=== PATIENT | female | born 1950 | race Caucasian/White ===

== ENCOUNTER 2018-02-12 00:11 | Inpatient (IN) | payer MEDICARE, MEDICAID ==
--- NOTE | 2018-02-12 00:24 | ED Physician Chart ---
ED Chief Complaint/HPI - Patient Information Date Seen:: 02/12/18 Time Seen:: 00:23 Chief Complaint:: Hypoxia History of Present Illness:: 67 yo female was brought from [facility] to ER for evaluation of SOB and low O2 sat 80% -90%. Patient had bilateral periorbital ecchymosis and a forehead lump. Patient stated that she fell about a week ago but could not give details about the evaluation and treatment she received. ED Review of Systems - Review of Systems General/Constitutional: No fever Skin: Skin lesions Head: Headache Eyes: No pain ENT: No nasal drainage Neck: No neck pain Cardio Vascular: No chest pain Pulmonary: SOB, Cough GI: No nausea, No vomiting Musculoskeletal: Bone or joint pain Neurological: No focal symptoms ED Past Medical History - Past Medical History Past Medical History: HTN, CHF, Dyslipidemia, Other (glaucoma, abnormal gait, weakness) Social History: Non Smoker, No Alcohol, No Drug Use Family Medical History - Family Member Mother History Unknown: Yes ED Physical Exam - Physical Examination Other Gen/Cons comments:: drowsy Other Head comments:: Frontal hematoma Other Eyes comments:: Bilateral periorbital ecchymosis ENMT: Nasal exam nl Neck: No nuchal rigidity Other Respiratory comments:: diminished lung sound Cardio Vascular: RRR, No murmur, gallop, rubs, NL S1 S2 Other GI comments:: BS normal, abdomen distended Other comments:: wearing diaper Extremities: normal strength in all extremities Neuro/Psych: No focal deficits ED Labs/Radiology/EKG Results - Lab Results Results: Laboratory Last Values WBC 5.9 Th/cmm (4.8-10.8) 02/12/18 00:20 RBC 5.13 Mil/cmm (3.80-5.20) 02/12/18 00:20 Hgb 13.5 gm/dL (12-16) 02/12/18 00:20 Hct 43.2 % (41.0-60) 02/12/18 00:20 MCV 84.3 fl (81-100) 02/12/18 00:20 MCH 26.3 pg (27.0-31.0) L 02/12/18 00:20 MCHC Differential 31.2 pg (28.0-36.0) 02/12/18 00:20 RDW 20.9 % (11.5-20.0) H 02/12/18 00:20 Plt Count 177 Th/cmm (150-400) 02/12/18 00:20 MPV 9.0 fl 02/12/18 00:20 Neutrophils % 71.1 % (40.0-80.0) 02/12/18 00:20 Lymphocytes % 16.2 % (20.0-50.0) L 02/12/18:20 Monocytes % 8.8 % (2.0-10.0) 02/12/18:20 Eosinophils % 1.2 % (0.0-5.0) 02/12/18 00:20 Basophils % 2.7 % (0.0-2.0) H 02/12/18 00:20 D-Dimer 1650 ng/mL (100-400) H 02/12/18 00:20 Specimen Source arterial 02/12/18 00:26 Sample Site right radial 02/12/18 00:26 pH 7.47 (7.35-7.45) H 02/12/18 00:26 pCO2 58.0 mmHg (35.0-45.0) H* 02/12/18 00:26 pO2 81.0 mmHg (80.0-100.0) 02/12/18 00:26 HCO3 37.3 mEq/L (20.0-26.0) H 02/12/18 00:26 Base Excess 15.9 mEq/L (-3.0-3.0) H 02/12/18 00:26 O2 Saturation 97.0 % (92.0-100.0) 02/12/18 00: Nirav Test yes 02/12/18 00: Vent Rate n/a 02/12/18 00:26 Inspired O2 28 02/12/18 00:26 Tidal Volume n/a 02/12/18 00:26 PEEP n/a 02/12/18 00:26 Pressure (ins/psv/peep) n/a 02/12/18 00:26 Critical Value abroedel 02/12/18 00:26 Sodium 136 mEq/L (136-145) 02/12/18 00:20 Potassium 4.4 mEq/L (3.5-5.1) 02/12/18 00:20 Chloride 92 mEq/L (98-107) L 02/12/18 00:20 Carbon Dioxide 34.7 mEq/L (21.0-31.0) H 02/12/18 00:20 Anion Gap 13.7 (7.0-16.0) 02/12/18 00:20 BUN 38 mg/dL (7-25) H 02/12/18 00:20 Creatinine 1.4 mg/dL (0.6-1.2) H 02/12/18 00:20 Est GFR ( Amer) 47.9 ml/min (>90) 02/12/18 00:20 Est GFR (Non-Af Amer) 39.6 ml/min 02/12/18 00:20 BUN/Creatinine Ratio 27.1 02/12/18 00:20 Glucose 136 mg/dL (70-105) H 02/12/18 00:20 Calcium 9.1 mg/dL (8.6-10.3) 02/12/18 00:20 Total Bilirubin 2.2 mg/dL (0.3-1.0) H 02/12/18 00:20 AST 22 U/L (13-39) 02/12/18 00:20 ALT 12 U/L (7-52) 02/12/18 00:20 Alkaline Phosphatase 210 U/L (34-104) H 02/12/18 00:20 Creatine Kinase 21 U/L (30-223) L 02/12/18 05:15 Troponin I 0.02 ng/mL (0.01-0.05) 02/12/18 05:15 B-Natriuretic Peptide > 5000.0 pg/mL (5.0-100.0) H 02/12/18 00:20 Total Protein 6.8 gm/dL (6.0-8.3) 02/12/18 00:20 Albumin 3.0 gm/dL (3.7-5.3) L 02/12/18 00:20 Globulin 3.8 gm/dL 02/12/18 00:20 Albumin/Globulin Ratio 0.8 (1.0-1.8) L 02/12/18 00:20 Urine Source CATH 02/12/18 02:10 Urine Color YELLOW 02/12/18 02:10 Urine Clarity HAZY (CLEAR) 02/12/18 02:10 Urine pH 5.5 (4.6 - 8.0) 02/12/18 02:10 Ur Specific [place] 1.025 (1.005-1.030) 02/12/18 02:10 Urine Protein 100 mg/dL (NEGATIVE) H 02/12/18 02:10 Urine Glucose (UA) NEGATIVE mg/dL (NEGATIVE) 02/12/18 02:10 Urine Ketones TRACE mg/dL (NEGATIVE) 02/12/18 02:10 Urine Blood SMALL (NEGATIVE) H 02/12/18 02:10 Urine Nitrate NEGATIVE (NEGATIVE) 02/12/18 02:10 Urine Bilirubin MODERATE (NEGATIVE) H 02/12/18 02:10 Urine Ictotest POSITIVE (NEGATIVE) 02/12/18 02:10 Urine Urobilinogen >=8.0 E.U./dL (0.2 - 1.0) H 02/12/18 02:10 Ur Leukocyte Esterase NEGATIVE (NEGATIVE) 02/12/18 02:10 Urine RBC 2-5 /hpf (0-5) 02/12/18 02:10 Urine WBC 10-25 /hpf (0-5) H 02/12/18 02:10 Ur Epithelial Cells MODERATE /lpf (FEW) 02/12/18 02:10 Urine Bacteria MODERATE /hpf (NONE SEEN) H 02/12/18 02:10 - Radiology Results Results: CXR: cardiomegaly, congestion, possible left lung base infiltrate and left effusion. CT head without contrast: soft tissue swelling and hematoma on the left frontal scalp. No skull fracture, No acute intracranial abnormality. - EKG Interpretations Rate & Rhythm: Sinus rhythm Comments:: No specific ST and T changes ED Assessment - Assessment General Assessment: CHF exacerbation Hypercapnetic repspiratory failure Metabolic alkalosis CKD stage 3b UTI Left frontal hematoma Assessment/Comments:: CBC, CMP, UA, ABG, D-dimer CXR, EKG Lasix 40mg IV Rocephin 1mg IV O2 support Admit to telemetry ED Septic Shock - . Is Septic Shock (SBP<90, OR Lactate>4 mmol\L) present?: No ED Reassessment (Disposition) - Reassessment Reassessment Condition:: Improved - Patient Disposition Discharge/Transfer:: Acute Care w/in this hosp Admitting Medical Physician:: Pako Dumont ED Discharge Plan - Patient Disposition Admit/Discharge/Transfer: Acute Care w/in this hosp
[2018-02-12 00:45] LABS: % BASOPHILS 2.7 % (0.0-2.0); % EOSINOPHILS 1.2 % (0.0-5.0); % LYMPHOCYTES 16.2 % (20.0-50.0); % MONOCYTES 8.8 % (2.0-10.0); % NEUTROPHILS 71.1 % (40.0-80.0); BASOPHILE ABSOLUTE 0.2 Th/cumm (0-0.2); EOSINOPHILE ABSOLUTE 0.1 Th/cmm (0.1-0.4); HEMATOCRIT 43.2 % (41.0-60); HEMOGLOBIN 13.5 gm/dL (12-16); MEAN CELL VOLUME 84.3 fl (81-100); MEAN CORPUSCULAR HEMOGLOBIN 26.3 pg (27.0-31.0); MEAN CORPUSCULAR HGB CONC 31.2 pg (28.0-36.0); MONOCYTE ABSOLUTE 0.5 Th/cmm (0.3-1.0); NEUTROPHILE ABSOLUTE 4.1 Th/cmm (1.8-8.0); PLATELET COUNT 177 Th/cmm (150-400); RED BLOOD COUNT 5.13 Mil/cmm (3.80-5.20); RED CELL DISTRIBUTION WIDTH 20.9 % (11.5-20.0); WHITE BLOOD COUNT 5.9 Th/cmm (4.8-10.8)
[2018-02-12 00:58] LABS: ALB/GLOB RATIO 0.8 (1.0-1.8); ANION GAP 13.7 (7.0-16.0); BILIRUBIN,TOTAL 2.2 mg/dL (0.3-1.0); CALCIUM SERUM 9.1 mg/dL (8.6-10.3); CARBON DIOXIDE 34.7 mEq/L (21.0-31.0); CREATININE - SERUM 1.4 mg/dL (0.6-1.2); GFR AFRICAN-AMERICAN 47.9 ml/min (>90); GFR NON AFRICAN-AMERICAN 39.6 ml/min; POTASSIUM SERUM 4.4 mEq/L (3.5-5.1); TOTAL PROTEIN,SERUM 6.8 gm/dL (6.0-8.3)
[2018-02-12 02:21] LABS: URINE MICROSCOPIC INDICATED? YES; URINE SOURCE CATH
[2018-02-12 02:30] LABS: URINE BILIRUBIN MODERATE (NEGATIVE); URINE BLOOD SMALL (NEGATIVE); URINE GLUCOSE (UA) NEGATIVE (NEGATIVE); URINE KETONE TRACE mg/dL (NEGATIVE); URINE LEUKOCYTE ESTERASE NEGATIVE (NEGATIVE); URINE NITRATE NEGATIVE (NEGATIVE); URINE PH 5.5 (4.6 - 8.0); URINE PROTEIN 100 mg/dL (NEGATIVE); URINE UROBILINOGEN >=8.0 E.U./dL (0.2 - 1.0)
[2018-02-12 02:36] LABS: URINE CLARITY HAZY (CLEAR); URINE COLOR YELLOW
[2018-02-12 02:41] LABS: URINE ICTOTEST POSITIVE (NEGATIVE)
[2018-02-12 02:42] LABS: URINE EPITHELIAL CELLS MODERATE /lpf (FEW)
[2018-02-12 02:43] LABS: URINE BACTERIA MODERATE /hpf (NONE SEEN)
[2018-02-12 02:47] LABS: pH 7.47 (7.35-7.45)
[2018-02-12 02:48] LABS: ALLEN TEST yes
[2018-02-12] MEDS ORDERED: cefTRIAXone 1 GM in Sodium Chloride 0.9% 50 ML IV ONE (02:58)
--- NOTE | 2018-02-12 08:29 | Diagnostic Imaging Report ---
Head CT without intravenous contrast Indication: Trauma Comparison: None Technique: Axial images were obtained from the vertex to the skull base without IV contrast. Coronal reconstructions were made. Total DLP: 615, [id number] FINDINGS: Images of the brain obtained without contrast demonstrate no evidence of an acute hemorrhage. Atrophy is noted. Punctate left basal Calcification is noted. The ventricles and basal cisterns are patent. No mass effect or midline shift. There is soft tissue swelling hematoma formation of a left frontal scalp. Right frontal scalp small exostosis is noted. There is no evidence of a skull fracture. The visualized paranasal sinuses demonstrating minimal mucosal thickening. IMPRESSION: Soft tissue swelling and hematoma formation of the left frontal scalp. No evidence of a skull fracture. No acute intracranial abnormality. Atrophy.
[2018-02-12] MEDS: Potassium Chloride 20 mEq ER Tab PO SCH ×2 (08:52→16:44)
--- NOTE | 2018-02-12 08:52 | Diagnostic Imaging Report ---
CHEST X-RAY: AP view INDICATION: Shortness of breath COMPARISON: None FINDINGS: There is thickening of the minor fissure. Left basal density is noted. There may be mild congestion. Cardiomegaly is noted with atherosclerosis. Degenerative changes of the spine are noted. There appears to be external material along the left clavicular region. IMPRESSION: Probable mild congestion. There may be a small left effusion. Faint infiltrative the left lung base cannot be excluded. Cardiomegaly and atherosclerotic vascular disease.
[2018-02-12] MEDS: Albuterol/Ipratropium Neb 3 ML AERS HHN SCH ×2 (12:22→19:38)
--- NOTE | 2018-02-12 12:48 | History & Physical ---
ADMIT DATE: 02/12/2018 PATIENT IDENTIFICATION: A 67-year-old male. CHIEF COMPLAINT: "I don't know." HISTORY SOURCE: Reviewing the chart, talking to nursing staff, as well as Emergency Room MD. HISTORY OF PRESENT ILLNESS: A 67-year-old [place] female who speaks [place]ian only, has history of hypertension, glaucoma, DJD, questionable coronary artery disease, and questionable congestive heart failure, had a fall 2 weeks ago at home and from that fall, the patient was taken to [facility] Emergency Room and from there, the patient was admitted to fdc at [facility]. According to reviewing of the chart and talking to the staff, the patient was under hospice care where the patient was noted to have shortness of breath for few hours. The patient's family decided to revoke the hospice and now the patient is transferred to [facility]. When the patient was evaluated by Emergency Room MD, the patient was noted to have elevated BNP of more than 5000 and chest x-ray was done, which did reveal the patient had a congestive heart failure with small effusion. The patient also noted to have cardiomegaly with atherosclerotic vascular disease. The patient is now being admitted for further treatment. PAST MEDICAL HISTORY: Remarkable for: 1. Hypertension. 2. Hyperlipidemia. 3. Glaucoma. 4. Coronary artery disease. 5. DJD. 6. History of mechanical fall. ALLERGIES: The patient is not allergic to medication. SOCIAL HISTORY: The patient lives currently in a fdc. Prior to that, patient was living in the home. FAMILY MEDICAL HISTORY: Remarkable for diabetes. REVIEW OF SYSTEMS: Unable to get meaningful history from the patient In spite of using ice cream vendor. PHYSICAL EXAMINATION: GENERAL: The patient is alert, awake, lying in the bed. VITAL SIGNS: Temperature 96.2, pulse is 58, respiratory is 18, blood pressure 135/78. HEENT: Remarkable for resolving hematoma in both upper and lower eyelid with soft tissue swelling of the scalp noted as well as the forehead area noted. Pupil reactive to light. Bilateral cataracts noted. Sclerae without icterus. Tongue was pink and coated with poor dentition noted. NECK: Supple, no JVD, no lymphadenopathy or thyromegaly. HEART: Both heart sounds are regular with positive S3. CHEST AND LUNGS: Equal in expansion with expiratory wheezing with fine basilar crackles noted. ABDOMEN: Soft. No guarding, no rigidity. Liver and spleen palpable. No palpable masses. EXTREMITIES: Trace edema noted with peripheral pulses are +1. No calf tenderness. NEUROLOGIC: Unable to assess complete neuro exam. The patient is alert, follows command and then falls back asleep. Moving upper lower extremity. Lower extremities with generalized weakness in the proximal and distal portion of the lower extremity noted. AVAILABLE DIAGNOSTIC DATA: CT head was unremarkable for any bleed, but soft tissue swelling noted. Chest x-ray bilateral infiltrate with pulmonary venous congestion noted. A white count of 5.9, hemoglobin 13.5, platelet count of 177. D-dimer of 1650. BUN and creatinine is 30 and 1.4, potassium 4.4. BNP of more than 5000. Alkaline phosphatase is ___. Urinalysis remarkable for consider positive nitrites, positive bilirubin, positive blood, protein, bacteria, and WBC. EKG, no ST-T changes representing acute ischemia. CLINICAL IMPRESSIONS: 1. Acute respiratory failure. 2. Congestive heart failure exacerbation. 3. Possible underlying pneumonia. 4. Status post mechanical fall with a resolving hematoma on the forehead. 5. Hypertension. 6. Hyperlipidemia. 7. Glaucoma. 8. Degenerative joint disease. 9. Possible underlying dementia. 10. Urinary tract infection. 11. High risk for fall. PLAN: 1. Admit this patient to telemetry unit, provide oxygen. 2. IV Lasix. 3. Beta-kvng. 4. SEBASTIEN inhibitor and ARB. 5. Potassium supplement. 6. 2D echocardiogram. 7. Cardiology consultation. 8. Nebulizer treatment. 9. Nutritional support. 10. Monitor I's and O's. 11. Daily weight. 12. DVT prophylaxis. 13. Appropriate home medicine reconciliation. 14. Follow up on lab and x-ray. 15. General nursing care. 16. Cardiac monitoring. 17. Follow spa consultant recommendation. 18. Care plan reviewed and discussed with staff. JOB# [id number]
[2018-02-12] MEDS: Azithromycin 500 MG in Sodium Chloride 0.9% 250 ML IV SCH (13:05)
[2018-02-13] MEDS: Albuterol/Ipratropium Neb 3 ML AERS HHN SCH ×4 (01:03→20:49)
--- NOTE | 2018-02-13 02:03 | Consultation ---
DATE OF CONSULTATION: 02/12/2018 HISTORY AND PHYSICAL: This is a 67-year-old female patient who had a fall. Following this, the patient was admitted to [facility] and discharged to skilled nursing. The patient apparently continued to get weaker than weaker. Following this, the patient came to the Emergency Room at [facility] from hospice and the patient's BNP level is over 5000. Hence, Cardiology consult requested. PAST MEDICAL HISTORY: Hypertension, congestive heart failure, glaucoma, hyperlipidemia, concussion following fall with hematoma in the forehead, angina, hyperlipidemia, urinary tract infection, degenerative joint disease, morbid obesity, osteoporosis. FAMILY HISTORY: Unremarkable. SOCIAL HISTORY: No history of smoking, alcohol abuse. ALLERGIES: None. PHYSICAL EXAMINATION: VITAL SIGNS: Blood pressure 138/82, pulse 70, respirations 28. HEENT: The patient has concussion with ecchymosis and hematoma of the forehead. NECK: JVD 10 cm above sternal angle. Thyroid not palpable. Lymph nodes not palpable. CHEST: Shows increased AP diameter. No kyphosis, scoliosis. LUNGS: Bilateral rales. Decreased breath sounds both the bases. HEART: PMI sixth intercostal space with lateral to midclavicular line. S1, S2, S3, S4, soft systolic murmur. ABDOMEN: Soft, hepatojugular reflux. Positive bowel sounds active. NEUROLOGIC: No focal neurological deficit. EXTREMITIES: Peripheral pulses 1+, pedal edema 2+. CLINICAL IMPRESSION: Congestive heart failure, we will get echocardiogram for left ventricular function. Concussion with forehead hematoma, hypertension, glaucoma, angina, coronary artery disease, hyperlipidemia, urinary tract infection, degenerative joint disease, morbid obesity, osteoporosis. PLAN: At the present time, we will continue the patient on diuretics, get echocardiogram, physical therapy and monitor the patient. JOB# [id number]
[2018-02-13 06:47] LABS: % BASOPHILS 0.3 % (0.0-2.0); % EOSINOPHILS 9.9 % (0.0-5.0); % LYMPHOCYTES 17.1 % (20.0-50.0); % MONOCYTES 11.5 % (2.0-10.0); % NEUTROPHILS 61.2 % (40.0-80.0); EOSINOPHILE ABSOLUTE 0.6 Th/cmm (0.1-0.4); HEMATOCRIT 40.4 % (41.0-60); HEMOGLOBIN 12.6 gm/dL (12-16); MEAN CELL VOLUME 85.1 fl (81-100); MEAN CORPUSCULAR HEMOGLOBIN 26.6 pg (27.0-31.0); MEAN CORPUSCULAR HGB CONC 31.3 pg (28.0-36.0); MONOCYTE ABSOLUTE 0.6 Th/cmm (0.3-1.0); NEUTROPHILE ABSOLUTE 3.4 Th/cmm (1.8-8.0); PLATELET COUNT 183 Th/cmm (150-400); RED BLOOD COUNT 4.75 Mil/cmm (3.80-5.20); RED CELL DISTRIBUTION WIDTH 20.2 % (11.5-20.0); WHITE BLOOD COUNT 5.6 Th/cmm (4.8-10.8)
[2018-02-13 07:14] LABS: ALB/GLOB RATIO 0.8 (1.0-1.8); ALBUMIN 2.7 gm/dL (3.7-5.3); ALKALINE PHOSPHATASE 162 U/L (34-104); ANION GAP 10.9 (7.0-16.0); BILIRUBIN,TOTAL 1.6 mg/dL (0.3-1.0); BUN - UREA NITROGEN 39 mg/dL (7-25); CALCIUM SERUM 8.9 mg/dL (8.6-10.3); CARBON DIOXIDE 36.9 mEq/L (21.0-31.0); CHLORIDE 95 mEq/L (98-107); CREATININE - SERUM 1.1 mg/dL (0.6-1.2); GFR AFRICAN-AMERICAN > 60.0 ml/min (>90); GFR NON AFRICAN-AMERICAN 52.3 ml/min; GLUCOSE 89 mg/dL (70-105); MAGNESIUM 2.4 mg/dL (1.9-2.7); POTASSIUM SERUM 4.8 mEq/L (3.5-5.1); SGOT 21 U/L (13-39); SGPT/ALT 9 U/L (7-52); SODIUM SERUM 138 mEq/L (136-145); TOTAL PROTEIN,SERUM 6.2 gm/dL (6.0-8.3)
[2018-02-13] MEDS ORDERED: Probiotic Screen MC PRN (09:00)
[2018-02-13] MEDS: Potassium Chloride 20 mEq ER Tab PO SCH ×2 (09:26→16:54)
[2018-02-13] MEDS: Azithromycin 500 MG in Sodium Chloride 0.9% 250 ML IV SCH (09:31)
[2018-02-13] MEDS: Lactobacillus Rhamnosus GG 15 Billion CFU CAP.SPRINK PO SCH (09:32)
--- NOTE | 2018-02-13 10:19 | Progress Notes ---
DATE: PATIENT'S IDENTIFICATION: A 67-year-old female. SUBJECTIVE: The patient seen and examined. The patient is lying in the bed. The patient is more alert and awake. The patient is participating in physical therapy. The patient denies any chest pain. Shortness of breath is better. No cough, no headache. PHYSICAL EXAMINATION: VITAL SIGNS: Temperature 96.7, pulse is 70, respiratory rate is 18, and blood pressure 125/70. HEENT: No facial asymmetry. Bilateral periorbital hematoma noted. NECK: Supple. No JVD. HEART: Regular. CHEST: Lungs equal in expansion with mild expiratory wheezing. Fine basilar crackles noted. ABDOMEN: Soft. No guarding, no rigidity. Bowel sounds are present. No palpable mass. EXTREMITIES: No edema. CLINICAL IMPRESSION: 1. Congestive heart failure exacerbation. 2. Hypertension. 3. Urinary tract infection. 4. Pneumonia. 5. Hyperlipidemia. 6. Degenerative joint disease. 7. Status post mechanical fall with bilateral periorbital hematoma. 8. Glaucoma. PLAN: 1. Continue oxygen. 2. Nebulizer treatment. 3. IV Lasix. 4. Beta kvng. 5. ARB. 6. Empiric IV antibiotic. 7. Probiotic. 8. General nursing care. 9. Follow lab. 10. Follow consult recommendation. 11. PT, OT. 12. Care plan reviewed and discussed with staff. JOB# [id number]
[2018-02-14] MEDS: Albuterol/Ipratropium Neb 3 ML AERS HHN SCH ×4 (01:28→19:02)
[2018-02-14 06:45] LABS: % BASOPHILS 0.9 % (0.0-2.0); % LYMPHOCYTES 15.9 % (20.0-50.0); % MONOCYTES 11.2 % (2.0-10.0); EOSINOPHILE ABSOLUTE 0.8 Th/cmm (0.1-0.4); HEMATOCRIT 38.7 % (41.0-60); HEMOGLOBIN 12.2 gm/dL (12-16); LYMPHOCYTE ABSOLUTE 0.8 Th/cmm (1.5-3.0); MEAN CORPUSCULAR HEMOGLOBIN 27.1 pg (27.0-31.0); MEAN CORPUSCULAR HGB CONC 31.5 pg (28.0-36.0); MEAN PLATELET VOLUME 8.6 fl; MONOCYTE ABSOLUTE 0.6 Th/cmm (0.3-1.0); PLATELET COUNT 196 Th/cmm (150-400); RED CELL DISTRIBUTION WIDTH 20.5 % (11.5-20.0); WHITE BLOOD COUNT 5.2 Th/cmm (4.8-10.8)
[2018-02-14 06:47] LABS: ALB/GLOB RATIO 0.7 (1.0-1.8); ALBUMIN 2.6 gm/dL (3.7-5.3); ALKALINE PHOSPHATASE 149 U/L (34-104); ANION GAP 8.5 (7.0-16.0); BILIRUBIN,TOTAL 1.3 mg/dL (0.3-1.0); BUN - UREA NITROGEN 30 mg/dL (7-25); CALCIUM SERUM 8.9 mg/dL (8.6-10.3); CHLORIDE 95 mEq/L (98-107); CREATININE - SERUM 0.7 mg/dL (0.6-1.2); GFR AFRICAN-AMERICAN > 60.0 ml/min (>90); GFR NON AFRICAN-AMERICAN > 60.0 ml/min; GLUCOSE 98 mg/dL (70-105); MAGNESIUM 2.4 mg/dL (1.9-2.7); POTASSIUM SERUM 4.2 mEq/L (3.5-5.1); SGOT 16 U/L (13-39); SGPT/ALT 8 U/L (7-52); SODIUM SERUM 141 mEq/L (136-145); TOTAL PROTEIN,SERUM 6.1 gm/dL (6.0-8.3)
[2018-02-14 06:50] LABS: CARBON DIOXIDE 41.7 mEq/L (21.0-31.0)
--- NOTE | 2018-02-14 08:55 | Diagnostic Imaging Report ---
Exam: Portable chest x-ray HISTORY: Congestive heart failure I needs: Portable examination of the chest at 0073 hours reviewed compatible prior study 02/12/2018 demonstrates unchanged appearance of cardiomegaly with left lower lobe infiltrate visualized bony thorax intact. The aortic arch calcified. There is no evidence for congestive heart failure IMPRESSION unchanged compared to prior examination, cardiomegaly superimposed left-sided pneumonia and effusion. Follow-up exam is recommended.
[2018-02-14] MEDS: Potassium Chloride 20 mEq ER Tab PO SCH ×2 (09:10→17:22)
[2018-02-14] MEDS: Lactobacillus Rhamnosus GG 15 Billion CFU CAP.SPRINK PO SCH (09:12)
[2018-02-14] MEDS: Azithromycin 500 MG in Sodium Chloride 0.9% 250 ML IV SCH (10:26)
--- NOTE | 2018-02-14 10:34 | Progress Notes ---
DATE: PATIENT'S IDENTIFICATION: 67-year-old female. SUBJECTIVE: The patient was seen and examined. The patient is feeling better. The patient's lab has shown improving CHF. Followup chest x-ray reviewed. The patient denies any chest pain or short of breath. PHYSICAL EXAMINATION: On exam, VITAL SIGNS: Temperature 97.1, pulse 60, respiratory rate 18, blood pressure 126/76. HEENT: Bilateral raccoon eyes with a scalp hematoma noted. NECK: Supple, no JVD. HEART: Regular. CHEST AND LUNG: Equal in expansion with fine basal crackles. ABDOMEN: Soft. No guarding or rigidity. Bowel sounds are present. EXTREMITIES: No edema. CLINICAL IMPRESSION: 1. Congestive heart failure exacerbation. 2. Hypertension. 3. Urinary tract infection. 4. Pneumonia. 5. Hyperlipidemia. 6. Degenerative joint disease. 7. High risk for fall. PLAN: 1. Oxygen. 2. Nebulizer treatment. 3. Lasix. 4. Beta kvng. 5. IRB. 6. IV antibiotic. 7. General nursing care. 8. Fall precautions. 9. PT, OT. 10. Follow lab. 11. Follow consult recommendation. 12. Care plan reviewed and discussed. JOB# [id number]
--- NOTE | 2018-02-14 17:02 | Cardiology ---
02/12/2018 ECHOCARDIOGRAM REPORT Patient of Dr. Dumont. M-MODE ECHOCARDIOGRAM: Mitral valve, anterior leaflet of mitral valve shows decreased excursion, EF velocity. Posterior leaflet of the mitral valve shows decreased excursion. Left ventricular posterior wall shows increased thickness, decreased excursion. Interventricular septum shows increased thickness, decreased excursion, ejection fraction 40%. Left atrium enlarged 5.8 cm. Aortic root shows normal dimension, normal excursion of aortic leaflets. CONCLUSION: Hypertrophy of the left ventricle, enlarged left ventricular cavity with decreased ejection fraction, left atrial enlargement and ejection fraction 40%. 2D ECHO: Long axis view shows enlarged left ventricular cavity with decreased ejection fraction, hypertrophy of the left ventricle. Left atrial enlargement. Aortic root shows normal dimension, normal excursion of aortic leaflets. Short axis view of mitral valve normal. Short axis view of aortic valve normal. Apical four chamber view showed enlarged left ventricular cavity with decreased ejection fraction, hypertrophy of the left ventricle. Left atrial enlargement. Right ventricular cavity, right atrium normal. No pericardial effusion. CONCLUSION: Left atrial enlargement, hypertrophy of the left ventricle, cardiomyopathy, ejection fraction 40%. Doppler study shows severe mitral regurgitation, severe tricuspid regurgitation, moderate pulmonary regurgitation and right ventricular systolic pressure 46 mmHg. JOB# [id number]
[2018-02-15] MEDS: Albuterol/Ipratropium Neb 3 ML AERS HHN SCH ×4 (01:35→19:39)
[2018-02-15 06:46] LABS: HEMATOCRIT 38.9 % (41.0-60); HEMOGLOBIN 12.4 gm/dL (12-16); MEAN CELL VOLUME 85.6 fl (81-100); MEAN CORPUSCULAR HEMOGLOBIN 27.3 pg (27.0-31.0); MEAN CORPUSCULAR HGB CONC 31.9 pg (28.0-36.0); MEAN PLATELET VOLUME 8.3 fl; PLATELET COUNT 204 Th/cmm (150-400); RED BLOOD COUNT 4.55 Mil/cmm (3.80-5.20); RED CELL DISTRIBUTION WIDTH 20.6 % (11.5-20.0); WHITE BLOOD COUNT 5.3 Th/cmm (4.8-10.8)
[2018-02-15 06:52] LABS: MANUAL DIFF REQUIRED? YES
[2018-02-15 07:16] LABS: ALB/GLOB RATIO 0.8 (1.0-1.8); ALBUMIN 2.7 gm/dL (3.7-5.3); ALKALINE PHOSPHATASE 141 U/L (34-104); ANION GAP 7.8 (7.0-16.0); BILIRUBIN,TOTAL 1.2 mg/dL (0.3-1.0); BUN - UREA NITROGEN 25 mg/dL (7-25); CALCIUM SERUM 8.9 mg/dL (8.6-10.3); CHLORIDE 94 mEq/L (98-107); CREATININE - SERUM 0.7 mg/dL (0.6-1.2); GFR AFRICAN-AMERICAN > 60.0 ml/min (>90); GFR NON AFRICAN-AMERICAN > 60.0 ml/min; GLUCOSE 82 mg/dL (70-105); MAGNESIUM 2.3 mg/dL (1.9-2.7); POTASSIUM SERUM 4.2 mEq/L (3.5-5.1); SGOT 16 U/L (13-39); SGPT/ALT 8 U/L (7-52); SODIUM SERUM 139 mEq/L (136-145)
[2018-02-15 08:12] LABS: CARBON DIOXIDE 41.4 mEq/L (21.0-31.0)
[2018-02-15 08:30] LABS: ANISOCYTOSIS 1+; EOSINOPHIL 25 % (0-5); LYMPHOCYTE 14 % (20-50); MONOCYTE 7 % (2-10); NEUTROPHILS 54 % (40-80); PLATELET ESTIMATE ADEQUATE (NORMAL); TOTAL CELLS COUNTED 100
[2018-02-15] MEDS: Lactobacillus Rhamnosus GG 15 Billion CFU CAP.SPRINK PO SCH (10:14)
[2018-02-15] MEDS: Potassium Chloride 20 mEq ER Tab PO SCH ×2 (10:15→17:53)
[2018-02-15] MEDS: Azithromycin 500 MG in Sodium Chloride 0.9% 250 ML IV SCH (10:26)
[2018-02-15] MEDS ORDERED: Magnesium Hydroxide (MOM) 30 mL UDC PO ONE (17:08)
[2018-02-16] MEDS: Albuterol/Ipratropium Neb 3 ML AERS HHN SCH ×4 (01:38→18:57)
--- NOTE | 2018-02-16 05:23 | Progress Notes ---
DATE: PATIENT'S IDENTIFICATION: A 67-year-old female. SUBJECTIVE: The patient is seen and examined. No new complaint. Available lab. MAR reviewed. PHYSICAL EXAMINATION: On exam, VITAL SIGNS: Temperature 97.2, pulse 67, respiratory 18, blood pressure is 124/76. HEENT: Multiple resolving hematoma noted. NECK: Supple. No JVD. HEART: Regular. CHEST AND LUNG: Equal in expansion with fine basilar crackles noted. ABDOMEN: Soft. No guarding, no rigidity. Bowel sounds are present. No palpable mass. EXTREMITIES: No edema. NEUROLOGIC: Alert, awake, follows command. 2D ECHOCARDIOGRAM: Severe mitral regurgitation, tricuspid regurgitation with moderate pulmonary regurgitation with LVH with ejection fraction of 40%. CLINICAL IMPRESSION: 1. Congestive heart failure. 2. Severe mitral regurgitation. 3. Pulmonary regurgitation. 4. Congestive heart failure exacerbation. 5. High risk for fall. PLAN: Continue current treatment plan as prescribed. Follow lab and follow [facility] consultant's recommendation. JOB# [id number]
[2018-02-16 07:54] LABS: ANION GAP 7.4 (7.0-16.0); BUN - UREA NITROGEN 21 mg/dL (7-25); CALCIUM SERUM 9.2 mg/dL (8.6-10.3); CARBON DIOXIDE 40.9 mEq/L (21.0-31.0); CHLORIDE 94 mEq/L (98-107); CREATININE - SERUM 0.7 mg/dL (0.6-1.2); GFR AFRICAN-AMERICAN > 60.0 ml/min (>90); GFR NON AFRICAN-AMERICAN > 60.0 ml/min; GLUCOSE 87 mg/dL (70-105); POTASSIUM SERUM 4.3 mEq/L (3.5-5.1); SODIUM SERUM 138 mEq/L (136-145)
[2018-02-16] MEDS: Azithromycin 500 MG in Sodium Chloride 0.9% 250 ML IV SCH (10:21)
[2018-02-16] MEDS: Lactobacillus Rhamnosus GG 15 Billion CFU CAP.SPRINK PO SCH (10:43)
[2018-02-16] MEDS: Potassium Chloride 20 mEq ER Tab PO SCH ×2 (10:48→18:26)
[2018-02-16] MEDS ORDERED: MINERAL OIL ENEMA 135 ML BOTTLE RC ONE (15:00)
[2018-02-16 15:39] LABS: INR 1.21 (0.5-1.4); PROTHROMBIN TIME (TEST) 12.7 SECONDS (9.5-11.5)
[2018-02-17] MEDS: Albuterol/Ipratropium Neb 3 ML AERS HHN SCH ×4 (00:30→19:23)
--- NOTE | 2018-02-17 01:52 | Progress Notes ---
DATE: IDENTIFICATION: A 67-year-old female. SUBJECTIVE: The patient seen and examined. The patient's family at bedside. According to the patient's family that the patient is under care of hospice with cirrhosis of liver, according to the patient family. There was no definite diagnosis about her cirrhosis of liver. She never drank alcohol and there was no further evaluation was done. The patient's daughter is very much concerned and she would like her to be evaluated for her cirrhosis of liver as well. She is feeling better. The patient denies any chest pain or shortness of breath. PHYSICAL EXAMINATION: VITAL SIGNS: Temperature 97.1, pulse 66, respiratory rate is 18, blood pressure 121/67. HEENT: No facial asymmetry. NECK: Supple, no JVD. HEART: Regular. CHEST: Lungs equal in expansion, no expiratory wheezing. ABDOMEN: Soft. No guarding or rigidity. Bowel sounds are present. No palpable. EXTREMITIES: No edema. CLINICAL IMPRESSION: 1. Congestive heart failure exacerbation. 2. Cardiomyopathy. 3. Severe mitral and tricuspid regurgitation and moderate pulmonary regurgitation by 2D echocardiogram. 4. Eosinophilia by CBC. 5. Escherichia coli urinary tract infection. 6. Ruled out cirrhosis of liver, probably from #5. 7. Debility. PLAN: The patient is admitted at this time to telemetry unit. Continue oxygen, nebulizer treatment, antibiotic along with medical management for congestive heart failure workup for cirrhosis of liver by getting abdominal ultrasound. Serum iron, TIBC, ferritin and hepatitis panel and we will pursue further. The patient will have followup lab as well. Care plan has been reviewed and discussed with staff as well. JOB# [id number]
[2018-02-17 06:41] LABS: % BASOPHILS 0.9 % (0.0-2.0); % EOSINOPHILS 28.8 % (0.0-5.0); % MONOCYTES 7.4 % (2.0-10.0); % NEUTROPHILS 44.9 % (40.0-80.0); BASOPHILE ABSOLUTE 0.1 Th/cumm (0-0.2); EOSINOPHILE ABSOLUTE 1.8 Th/cmm (0.1-0.4); HEMATOCRIT 41.2 % (41.0-60); HEMOGLOBIN 13.1 gm/dL (12-16); LYMPHOCYTE ABSOLUTE 1.1 Th/cmm (1.5-3.0); MEAN CORPUSCULAR HEMOGLOBIN 26.9 pg (27.0-31.0); MEAN CORPUSCULAR HGB CONC 31.7 pg (28.0-36.0); MEAN PLATELET VOLUME 8.1 fl; MONOCYTE ABSOLUTE 0.5 Th/cmm (0.3-1.0); NEUTROPHILE ABSOLUTE 2.7 Th/cmm (1.8-8.0); PLATELET COUNT 226 Th/cmm (150-400); RED BLOOD COUNT 4.85 Mil/cmm (3.80-5.20); RED CELL DISTRIBUTION WIDTH 20.1 % (11.5-20.0); WHITE BLOOD COUNT 6.2 Th/cmm (4.8-10.8)
[2018-02-17 07:02] LABS: ALB/GLOB RATIO 0.8 (1.0-1.8); ALKALINE PHOSPHATASE 146 U/L (34-104); ANION GAP 10.5 (7.0-16.0); BILIRUBIN,TOTAL 1.3 mg/dL (0.3-1.0); BUN - UREA NITROGEN 19 mg/dL (7-25); CALCIUM SERUM 9.4 mg/dL (8.6-10.3); CARBON DIOXIDE 36.4 mEq/L (21.0-31.0); CHLORIDE 95 mEq/L (98-107); CREATININE - SERUM 0.7 mg/dL (0.6-1.2); GFR AFRICAN-AMERICAN > 60.0 ml/min (>90); GFR NON AFRICAN-AMERICAN > 60.0 ml/min; GLUCOSE 87 mg/dL (70-105); POTASSIUM SERUM 3.9 mEq/L (3.5-5.1); SGOT 20 U/L (13-39); SGPT/ALT 8 U/L (7-52); SODIUM SERUM 138 mEq/L (136-145); TOTAL PROTEIN,SERUM 6.9 gm/dL (6.0-8.3)
[2018-02-17] MEDS: Lactobacillus Rhamnosus GG 15 Billion CFU CAP.SPRINK PO SCH (09:12)
[2018-02-17] MEDS: Potassium Chloride 20 mEq ER Tab PO SCH ×2 (09:13→17:16)
--- NOTE | 2018-02-17 10:13 | Diagnostic Imaging Report ---
Exam: Ultrasound examination the abdomen HISTORY: Abdominal pain Findings: Real-time ultrasound examination of the abdomen performed multiple planes. The study somewhat limited due to patient inability to cooperate the visualized liver and spleen are intact. There is evidence of ascitic fluid. The gallbladder free of calculi the common bile duct measures 5 mm. Pancreas poorly seen. There is no evidence of obstructive uropathy or nephrolithiasis. Right renal cyst measuring 2.4 cm identified. The spleen is intact. IMPRESSION: Somewhat technically difficult examination due to patient debility to cooperate. No evidence for cholelithiasis. Ascitic fluid. Clinical correlation recommended.
[2018-02-17] MEDS: Azithromycin 500 MG in Sodium Chloride 0.9% 250 ML IV SCH (10:30)
--- NOTE | 2018-02-17 19:49 | Progress Notes ---
DATE: 02/17/2018 IDENTIFICATION: The patient is a 67-year-old female. SUBJECTIVE: The patient seen and examined on 02/17/2018. The patient is lying in the bed. No new event. PHYSICAL EXAMINATION: VITAL SIGNS: Temperature 97.7, pulse 72, respiratory rate 18, blood pressure 137/70. HEENT: Resolving hematoma. NECK: Supple, no JVD. HEART: Both heart sounds are regular. CHEST AND LUNGS: Equal in expansion with no wheezing. ABDOMEN: Soft, but no guarding or rigidity. Bowel sounds are present. No palpable mass. EXTREMITIES: No edema. CLINICAL IMPRESSION: 1. Congestive heart failure exacerbation. 2. Cardiomyopathy. 3. Severe mitral and tricuspid regurgitation. 4. Hypertension. 5. Coronary artery disease. 6. Eosinophilia. 7. Escherichia coli urinary tract infection. 8. Degenerative joint disease. 9. Debility. PLAN: 1. Add metolazone. 2. Monitor labs. 3. PT, OT. 4. IV antibiotic. 5. General nursing care. 6. Follow consult recommendation. 7. Await further lab tests. 8. Care PT, OT. 9. Care plan reviewed and discussed with staff. JOB# [id number]
[2018-02-18] MEDS: Albuterol/Ipratropium Neb 3 ML AERS HHN SCH ×4 (01:52→19:34)
[2018-02-18 06:45] LABS: % BASOPHILS 0.4 % (0.0-2.0); % NEUTROPHILS 40.6 % (40.0-80.0); EOSINOPHILE ABSOLUTE 1.9 Th/cmm (0.1-0.4); HEMATOCRIT 40.9 % (41.0-60); HEMOGLOBIN 12.9 gm/dL (12-16); LYMPHOCYTE ABSOLUTE 1.2 Th/cmm (1.5-3.0); MEAN CELL VOLUME 85.5 fl (81-100); MEAN CORPUSCULAR HGB CONC 31.6 pg (28.0-36.0); MEAN PLATELET VOLUME 7.7 fl; MONOCYTE ABSOLUTE 0.5 Th/cmm (0.3-1.0); NEUTROPHILE ABSOLUTE 2.5 Th/cmm (1.8-8.0); PLATELET COUNT 225 Th/cmm (150-400); RED BLOOD COUNT 4.79 Mil/cmm (3.80-5.20); RED CELL DISTRIBUTION WIDTH 20.1 % (11.5-20.0); WHITE BLOOD COUNT 6.1 Th/cmm (4.8-10.8)
[2018-02-18 07:10] LABS: ALB/GLOB RATIO 0.8 (1.0-1.8); ALKALINE PHOSPHATASE 140 U/L (34-104); ANION GAP 8.8 (7.0-16.0); BILIRUBIN,TOTAL 1.3 mg/dL (0.3-1.0); BUN - UREA NITROGEN 18 mg/dL (7-25); CALCIUM SERUM 9.3 mg/dL (8.6-10.3); CARBON DIOXIDE 39.7 mEq/L (21.0-31.0); CHLORIDE 94 mEq/L (98-107); CREATININE - SERUM 0.7 mg/dL (0.6-1.2); GFR AFRICAN-AMERICAN > 60.0 ml/min (>90); GFR NON AFRICAN-AMERICAN > 60.0 ml/min; GLUCOSE 80 mg/dL (70-105); MAGNESIUM 2.3 mg/dL (1.9-2.7); POTASSIUM SERUM 3.5 mEq/L (3.5-5.1); SGOT 20 U/L (13-39); SGPT/ALT 11 U/L (7-52); SODIUM SERUM 139 mEq/L (136-145); TOTAL PROTEIN,SERUM 6.9 gm/dL (6.0-8.3)
[2018-02-18] MEDS: Lactobacillus Rhamnosus GG 15 Billion CFU CAP.SPRINK PO SCH (09:14)
[2018-02-18] MEDS: Potassium Chloride 20 mEq ER Tab PO SCH ×2 (09:16→17:25)
--- NOTE | 2018-02-18 09:17 | General Progress Note ---
Subjective - Review of Systems Subjective: Patient is seen and examined. No new events. Objective - Results Result Diagrams: 02/18/18 05:40 02/18/18 05:40 Recent Labs: Laboratory Last Values WBC 6.1 Th/cmm (4.8-10.8) 02/18/18 05:40 RBC 4.79 Mil/cmm (3.80-5.20) 02/18/18 05:40 Hgb 12.9 gm/dL (12-16) 02/18/18 05:40 Hct 40.9 % (41.0-60) L 02/18/18 05:40 MCV 85.5 fl (81-100) 02/18/18 05:40 MCH 27.0 pg (27.0-31.0) 02/18/18 05:40 MCHC Differential 31.6 pg (28.0-36.0) 02/18/18 05:40 RDW 20.1 % (11.5-20.0) H 02/18/18 05:40 Plt Count 225 Th/cmm (150-400) 02/18/18 05:40 MPV 7.7 fl 02/18/18 05:40 Neutrophils % 40.6 % (40.0-80.0) 02/18/18 05:40 Lymphocytes % 20.0 % (20.0-50.0) 02/18/18 05:40 Monocytes % 8.0 % (2.0-10.0) 02/18/18 05:40 Eosinophils % 31.0 % (0.0-5.0) H 02/18/18 05:40 Basophils % 0.4 % (0.0-2.0) 02/18/18 05:40 Neutrophils (Manual) 54 % (40-80) 02/15/18 05:40 Lymphocytes 14 % (20-50) L 02/15/18 05:40 Monocytes 7 % (2-10) 02/15/18 05:40 Eosinophils 25 % (0-5) H 02/15/18 05:40 Platelet Estimate ADEQUATE (NORMAL) 02/15/18 05:40 Anisocytosis 1+ 02/15/18 05:40 PT 12.7 SECONDS (9.5-11.5) H 02/16/18 15:05 INR 1.21 (0.5-1.4) 02/16/18 15:05 PTT (Actin FS) 26.3 SECONDS (26.0-38.0) 02/16/18 15:05 D-Dimer 1650 ng/mL (100-400) H 02/12/18 00:20 Specimen Source arterial 02/12/18 00:26 Sample Site right radial 02/12/18 00:26 pH 7.47 (7.35-7.45) H 02/12/18 00:26 pCO2 58.0 mmHg (35.0-45.0) H* 02/12/18 00:26 pO2 81.0 mmHg (80.0-100.0) 02/12/18 00:26 HCO3 37.3 mEq/L (20.0-26.0) H 02/12/18 00:26 Base Excess 15.9 mEq/L (-3.0-3.0) H 02/12/18 00:26 O2 Saturation 97.0 % (92.0-100.0) 02/12/18 00:26 Nirav Test yes 02/12/18 00:26 Vent Rate n/a 02/12/18 00:26 Inspired O2 28 02/12/18 00:26 Tidal Volume n/a 02/12/18 00:26 PEEP n/a 02/12/18 00:26 Pressure (ins/psv/peep) n/a 02/12/18 00:26 Critical Value abroedel 02/12/18 00:26 Sodium 139 mEq/L (136-145) 02/18/18 05:40 Potassium 3.5 mEq/L (3.5-5.1) 02/18/18 05:40 Chloride 94 mEq/L (98-107) L 02/18/18 05:40 Carbon Dioxide 39.7 mEq/L (21.0-31.0) H 02/18/18 05:40 Anion Gap 8.8 (7.0-16.0) 02/18/18 05:40 BUN 18 mg/dL (7-25) 02/18/18 05:40 Creatinine 0.7 mg/dL (0.6-1.2) 02/18/18 05:40 Est GFR ( Amer) > 60.0 ml/min (>90) 02/18/18 05:40 Est GFR (Non-Af Amer) > 60.0 ml/min 02/18/18 05:40 BUN/Creatinine Ratio 25.7 02/18/18 05:40 Glucose 80 mg/dL (70-105) 02/18/18 05:40 Calcium 9.3 mg/dL (8.6-10.3) 02/18/18 05:40 Magnesium 2.3 mg/dL (1.9-2.7) 02/18/18 05:40 Total Bilirubin 1.3 mg/dL (0.3-1.0) H 02/18/18 05:40 AST 20 U/L (13-39) 02/18/18 05:40 ALT 11 U/L (7-52) 02/18/18 05:40 Alkaline Phosphatase 140 U/L (34-104) H 02/18/18 05:40 Creatine Kinase 17 U/L (30-223) L 02/12/18 23:19 Troponin I 0.02 ng/mL (0.01-0.05) 02/12/18 05:15 B-Natriuretic Peptide 1320.0 pg/mL (5.0-100.0) H 02/18/18 05:40 Total Protein 6.9 gm/dL (6.0-8.3) 02/18/18 05:40 Albumin 3.0 gm/dL (3.7-5.3) L 02/18/18 05:40 Globulin 3.9 gm/dL 02/18/18 05:40 Albumin/Globulin Ratio 0.8 (1.0-1.8) L 02/18/18 05:40 Urine Source CATH 02/12/18 02:10 Urine Color YELLOW 02/12/18 02:10 Urine Clarity HAZY (CLEAR) 02/12/18 02:10 Urine pH 5.5 (4.6 - 8.0) 02/12/18 02:10 Ur Specific [place] 1.025 (1.005-1.030) 02/12/18 02:10 Urine Protein 100 mg/dL (NEGATIVE) H 02/12/18 02:10 Urine Glucose (UA) NEGATIVE mg/dL (NEGATIVE) 02/12/18 02:10 Urine Ketones TRACE mg/dL (NEGATIVE) 02/12/18 02:10 Urine Blood SMALL (NEGATIVE) H 02/12/18 02:10 Urine Nitrate NEGATIVE (NEGATIVE) 02/12/18 02:10 Urine Bilirubin MODERATE (NEGATIVE) H 02/12/18 02:10 Urine Ictotest POSITIVE (NEGATIVE) 02/12/18 02:10 Urine Urobilinogen >=8.0 E.U./dL (0.2 - 1.0) H 02/12/18 02:10 Ur Leukocyte Esterase NEGATIVE (NEGATIVE) 02/12/18 02:10 Urine RBC 2-5 /hpf (0-5) 02/12/18 02:10 Urine WBC 10-25 /hpf (0-5) H 02/12/18 02:10 Ur Epithelial Cells MODERATE /lpf (FEW) 02/12/18 02:10 Urine Bacteria MODERATE /hpf (NONE SEEN) H 02/12/18 02:10 - Physical Exam Vitals and I&O: Vital Signs Temp 96.8 F 02/18/18 07:39 Pulse 69 02/18/18 07:39 Resp 19 02/18/18 07:39 BP 133/63 02/18/18 07:39 Pulse Ox 98 02/18/18 07:39 Intake & Output 02/17/18 02/18/18 02/18/18 18:59 06:59 18:59 Intake Total 300 150 Balance 300 150 Weight (lbs) 78.018 kg 78.018 kg Intake: Intake, IV Amount 300 Azithromycin 500 mg In 250 Sodium Chloride 0.9% 250 ml @ 250 mls/hr IV Q24HR [facility] Rx#:[id number] cefTRIAXone 1 gm In 50 Dextrose 5% 50 ml @ 100 mls/hr IV Q24H [facility] Rx#: [id number] Oral 150 Other: # Voids 3 Weight Source Bedscale Bedscale Active Medications: Current Medications Albuterol/Ipratropium (Duoneb Neb) 3 ml HHN Q6HRT [facility] Stop: 04/13/18 12:59 Last Admin: 02/18/18 07:36 Dose: 3 ml Brimonidine Tartrate (Alphagan 0.1% Ophth Soln) 1 drop EACH EYE TID [facility] Stop: 04/15/18 13:59 Last Admin: 02/17/18 21:56 Dose: 1 drop Carvedilol (Coreg) 6.25 mg PO BID [facility] Stop: 04/13/18 08:59 Last Admin: 02/17/18 17:17 Dose: 6.25 mg Diphenhydramine HCl (Benadryl) 25 mg PO Q8H PRN PRN Reason: Itching Stop: 04/15/18 13:22 Last Admin: 02/17/18 22:28 Dose: 25 mg Furosemide (Lasix) 40 mg IVP BID [facility] Stop: 04/13/18 08:59 Last Admin: 02/17/18 17:17 Dose: 40 mg Ibuprofen (Motrin) 400 mg PO Q8H PRN PRN Reason: pain Stop: 04/15/18 09:23 Last Admin: 02/14/18 12:37 Dose: 400 mg Lactobacillus Rhamnosus (Culturelle 15b) 1 each PO DAILY [facility] Stop: 04/14/18 08:59 Last Admin: 02/17/18 09:12 Dose: 1 each Latanoprost (Xalatan 0.005% Ophth Soln) 1 drop EACH EYE HS [facility] Stop: 04/15/18 20:59 Last Admin: 02/17/18 23:15 Dose: Not Given Losartan Potassium (Cozaar) 50 mg PO DAILY [facility] Stop: 04/13/18 08:59 Last Admin: 02/17/18 09:13 Dose: 50 mg Metolazone (Zaroxolyn) 2.5 mg PO BID [facility] Stop: 04/18/18 16:59 Last Admin: 02/17/18 17:16 Dose: 2.5 mg Miscellaneous (Probiotic Screen) 1 ea MC PRN PRN PRN Reason: PROTOCOL Stop: 04/14/18 08:59 Potassium Chloride (Klor-Con) 20 meq PO BID [facility] Stop: 04/13/18 08:59 Last Admin: 02/17/18 17:16 Dose: 20 meq General: Alert, Cooperative, No acute distress HEENT: Atraumatic, PERRLA, EOMI Neck: Supple Cardiovascular: Regular rate, Normal S1, Normal S2, Systolic murmurs Lungs: Other (fine crackes.) Abdomen: Bowel sounds, Soft Extremities: Other (PP+1) Assessment/Plan - Assessment Assessment: CHF exacerbation. Severe MR and TR. Hypertension. DJD. Pulmonary Hypertension. Debility. Abonormal LFT. - Plan Plan: Monitor lab. IV lasix. PO metalozone. Beta kvng and ARB. Cardiac monitoring. General nursing care. Continue current care. Follow cardiology recommendations. Discussed with staff. Nutritional Asmnt/Malnutr-PDOC - Dietary Evaluation Malnutrition Findings (Please click <Entered> for more info): Nutritional Asmnt/Malnutrition Start: 02/15/18 12: 02 Text: Status: Complete Freq: Document 02/15/18 12:02 ANDREA (Rec: 02/15/18 12:14 ANDREA AGN- [id number]) Nutritional Asmnt/Malnutrition Patient General Information Diagnosis CHF Pertinent Medical Hx/Surgical Hx HTN, hyperlipidemia, CAD, DJD Subjective Information Pt asleep at time of visit Current Diet Order/ Nutrition Support Cardiac Pertinent Medications lasix, culturelle Pertinent Labs 02/15: Na 139, K 4.2, Cl 94, Co2 41.4, BUN 25, Cr 0.7, Ca 8 .9, mag 2.3 Nutritional Hx/Data Height 1.68 m Height (Calculated Centimeters) 167.6 Current Weight (lbs) 82.1 kg Weight (Calculated Kilograms) 82.1 Weight (Calculated Grams) 38897.2 Body Mass Index (BMI) 29.2 Weight Status Overweight GI Symptoms GI Symptoms None Last BM none noted Cultural/Ethnic/Muslim Belief unknown Usual diet at home unknown Skin Integrity/Comment: spring score 14 Estimated Nutritional Goals BEE in Kcals: Using Current wt Calories/Kcals/Kg 25-30kcals/kg Kcals Calculated 0-2460kcals/day Protein: Using Current wt Protein g/kg/kg Protein Calculated 82g/day Fluid: ml per MD Nutritional Problem 1. Problem Problem No nutrition diagnosis at this time Intervention/Recommendation Comments Recommend continuing Cardiac Expected Outcomes/Goals Expected Outcomes/Goals PO intake >75% of meals
[2018-02-18 11:10] LABS: IRON LC 50; TIBC (LC) 329; UIBC 279
[2018-02-19] MEDS: Albuterol/Ipratropium Neb 3 ML AERS HHN SCH ×3 (00:59→19:11)
[2018-02-19 06:05] LABS: HEMATOCRIT 44.8 % (41.0-60); HEMOGLOBIN 14.1 gm/dL (12-16); MEAN CELL VOLUME 84.9 fl (81-100); MEAN CORPUSCULAR HEMOGLOBIN 26.7 pg (27.0-31.0); MEAN CORPUSCULAR HGB CONC 31.4 pg (28.0-36.0); MEAN PLATELET VOLUME 7.6 fl; PLATELET COUNT 252 Th/cmm (150-400); RED BLOOD COUNT 5.28 Mil/cmm (3.80-5.20); RED CELL DISTRIBUTION WIDTH 20.1 % (11.5-20.0); WHITE BLOOD COUNT 6.3 Th/cmm (4.8-10.8)
[2018-02-19 06:14] LABS: MANUAL DIFF REQUIRED? YES
[2018-02-19 06:30] LABS: ALB/GLOB RATIO 0.8 (1.0-1.8); ALBUMIN 3.5 gm/dL (3.7-5.3); ALKALINE PHOSPHATASE 155 U/L (34-104); ANION GAP 9.7 (7.0-16.0); BILIRUBIN,TOTAL 1.4 mg/dL (0.3-1.0); BUN - UREA NITROGEN 21 mg/dL (7-25); CALCIUM SERUM 9.9 mg/dL (8.6-10.3); CHLORIDE 90 mEq/L (98-107); CREATININE - SERUM 0.7 mg/dL (0.6-1.2); GFR AFRICAN-AMERICAN > 60.0 ml/min (>90); GFR NON AFRICAN-AMERICAN > 60.0 ml/min; GLUCOSE 86 mg/dL (70-105); POTASSIUM SERUM 3.7 mEq/L (3.5-5.1); SGOT 23 U/L (13-39); SGPT/ALT 14 U/L (7-52); SODIUM SERUM 137 mEq/L (136-145); TOTAL PROTEIN,SERUM 7.8 gm/dL (6.0-8.3)
[2018-02-19 07:05] LABS: EOSINOPHIL 38 % (0-5); LYMPHOCYTE 23 % (20-50); MONOCYTE 3 % (2-10); NEUTROPHILS 36 % (40-80); TOTAL CELLS COUNTED 100
[2018-02-19 08:10] LABS: HEP A AB IGM Negative (Negative); HEP B CORE IGM Indeterminate (Negative); HEP B SURFACE AG QL Negative (Negative); HEP C ANTIBODY 0.1 s/co ratio (0.0-0.9)
[2018-02-19] MEDS: Potassium Chloride 20 mEq ER Tab PO SCH ×2 (09:43→16:39)
[2018-02-19] MEDS: Lactobacillus Rhamnosus GG 15 Billion CFU CAP.SPRINK PO SCH (09:44)
[2018-02-20] MEDS: Albuterol/Ipratropium Neb 3 ML AERS HHN SCH ×4 (00:54→18:49)
[2018-02-20 07:33] LABS: HEMATOCRIT 45.1 % (41.0-60); HEMOGLOBIN 14.4 gm/dL (12-16); MEAN CELL VOLUME 85.3 fl (81-100); MEAN CORPUSCULAR HEMOGLOBIN 27.1 pg (27.0-31.0); MEAN CORPUSCULAR HGB CONC 31.8 pg (28.0-36.0); PLATELET COUNT 241 Th/cmm (150-400); RED BLOOD COUNT 5.29 Mil/cmm (3.80-5.20); RED CELL DISTRIBUTION WIDTH 19.5 % (11.5-20.0); WHITE BLOOD COUNT 5.7 Th/cmm (4.8-10.8)
[2018-02-20 07:40] LABS: ALB/GLOB RATIO 0.8 (1.0-1.8); ALBUMIN 3.4 gm/dL (3.7-5.3); ALKALINE PHOSPHATASE 148 U/L (34-104); ANION GAP 10.6 (7.0-16.0); BILIRUBIN,TOTAL 1.3 mg/dL (0.3-1.0); BUN - UREA NITROGEN 31 mg/dL (7-25); CALCIUM SERUM 9.8 mg/dL (8.6-10.3); CHLORIDE 90 mEq/L (98-107); CREATININE - SERUM 0.9 mg/dL (0.6-1.2); GFR AFRICAN-AMERICAN > 60.0 ml/min (>90); GFR NON AFRICAN-AMERICAN > 60.0 ml/min; GLUCOSE 127 mg/dL (70-105); POTASSIUM SERUM 3.7 mEq/L (3.5-5.1); SGOT 24 U/L (13-39); SGPT/ALT 16 U/L (7-52); SODIUM SERUM 138 mEq/L (136-145); TOTAL PROTEIN,SERUM 7.7 gm/dL (6.0-8.3)
[2018-02-20 07:59] LABS: CARBON DIOXIDE 41.1 mEq/L (21.0-31.0)
--- NOTE | 2018-02-20 08:41 | Diagnostic Imaging Report ---
CHEST X-RAY: AP view INDICATION: CHF COMPARISON: 02/14/2018 FINDINGS: There is no focal consolidation or pleural effusions. Left lower lung zone subsegmental atelectasis versus scarring is noted. Marked cardiomegaly is noted. IMPRESSION: Left lower lung zone subsegmental atelectasis versus scarring. No focal consolidation or evidence of anupama CHF. Marked cardiomegaly.
[2018-02-20] MEDS: Potassium Chloride 20 mEq ER Tab PO SCH ×2 (08:44→17:21)
[2018-02-20] MEDS: Lactobacillus Rhamnosus GG 15 Billion CFU CAP.SPRINK PO SCH (08:46)
[2018-02-20 09:59] LABS: MANUAL DIFF REQUIRED? YES
[2018-02-20 10:00] LABS: ATYPICAL LYMPH 6 %; BASOPHIL 1 % (0-3); EOSINOPHIL 30 % (0-5); LYMPHOCYTE 20 % (20-50); MONOCYTE 8 % (2-10); NEUTROPHILS 35 % (40-80); TOTAL CELLS COUNTED 100
[2018-02-20 10:01] LABS: PLATELET ESTIMATE ADEQUATE (NORMAL)
--- NOTE | 2018-02-20 10:48 | Progress Notes ---
DATE: 02/19/2018 THE PATIENT'S ID: A 67-year-old female. SUBJECTIVE: The patient seen and examined. The patient is feeling better. The patient had a blood test done, which I did review and noted to have hepatitis B core antibody IgM is intermediate with hepatitis B surface antigen is negative. The patient has some ascitic fluid, but no evidence of cholelithiasis. The patient did have chemistry panel, which remarkable for normal hemoglobin with normal liver function test with normal BUN and creatinine as well as ferritin level is being normal. PHYSICAL EXAMINATION: VITAL SIGNS: On today's exam, vital signs, temperature 98.3, pulse 68, respiratory rate 18, blood pressure 100/48. HEENT: No facial asymmetry. NECK: Supple, no JVD. HEART: Regular. CHEST AND LUNGS: Equal in expansion, no expiratory wheezing. ABDOMEN: Soft. No guarding or rigidity. Bowel sounds present. No palpable masses. EXTREMITIES: No edema. CLINICAL AVAILABLE LAB: MAR is reviewed. CLINICAL IMPRESSIONS: 1. Hepatitis B core antibody IgM intermediate positive. 2. Ascitic fluid on abdominal ultrasound. 3. Congestive heart failure. 4. Severe mitral regurgitation and tricuspid regurgitation. 5. Hypertension. 6. Congestive heart failure exacerbation. 7. Degenerative joint disease. 8. Debility. 9. Decline in self-care and mobility. PLAN: 1. Follow up lab. 2. GI consult. 3. Medical management. 4. General nursing care. 5. Transfer this patient to telemetry unit. 6. PT/OT. 7. Discharge planning to [facility]. [facility]# [id number]
--- NOTE | 2018-02-20 12:14 | Diagnostic Imaging Report ---
Ultrasound abdomen limited History: Ascites Comparison: Ultrasound abdomen on 02/16/2018 Technique/procedure: Sonography of the abdomen and pelvis is performed in multiple planes. Small right pleural effusion is noted. There is minimal ascites. A right adnexal cystic lesion is noted measuring 5.9 x 5.4 cm. IMPRESSION: Minimal ascites, not amenable for paracentesis procedure. Right ovarian cystic lesion measuring 5.9 x 5.4 cm. Given patient's age, findings are indeterminate and neoplastic etiology cannot be completely excluded. Correlation needs to be made with clinical history and old exams. A short-term follow-up dedicated pelvic ultrasound is also recommended for further assessment. Small right pleural effusion suspected.
[2018-02-21] MEDS: Albuterol/Ipratropium Neb 3 ML AERS HHN SCH ×4 (00:09→19:34)
--- NOTE | 2018-02-21 03:22 | Progress Notes ---
DATE: 02/20/2018 IDENTIFICATION: A 67-year-old female patient, seen and examined. The patient is sitting in the chair. The patient has no new complaint. The patient has equivocal, hepatitis B core IgM antibody positive, which required a GI evaluation. The patient clinically has significantly improved. The patient's anion gap remained normal. BUN has increased, so does the CO2 of 41 consistent with volume contraction alkalosis. PHYSICAL EXAMINATION: VITAL SIGNS: Temperature 98, pulse is 72, respiratory rate 18, and blood pressure 144/78. HEENT: Resolving hematoma. NECK: Supple, no JVD. HEART: Regular. CHEST AND LUNGS: Equal in expansion with no expiratory wheezing. ABDOMEN: Soft. No guarding and no rigidity. Bowel sounds are present. No palpable mass. EXTREMITIES: No edema. DIAGNOSTIC STUDIES: Chest x-ray, complete resolution of the CHF. AVAILABLE LABORATORY DATA: Reviewed. CLINICAL IMPRESSION: 1. Hepatitis B core IgM antibody, indeterminate. 2. Volume contraction alkalosis. 3. Congestive heart failure exacerbation, resolving. 4. Hypertension. 5. Degenerative joint disease. 6. Pulmonary hypertension. 7. Severe mitral regurgitation and tricuspid regurgitation. PLAN: 1. Discontinue metolazone. 2. Await GI input. 3. Continue other medication as prescribed. 4. PT and OT. 5. Discharge planning to halfway. 6. Care plan reviewed and discussed with staff. JOB# [id number]
--- NOTE | 2018-02-21 03:39 | Consultation ---
DATE OF CONSULTATION: 02/20/2018 INPATIENT GI CONSULTATION CONSULTING PHYSICIAN: Dr. Dumont. REASON FOR CONSULTATION: Hepatitis B core IgM positivity. HISTORY OF PRESENT ILLNESS: The patient is a 67-year-old female with past medical history significant for hypertension, glaucoma, congestive heart failure, coronary artery disease, hyperlipidemia, who is admitted to the hospital from her nursing facility for shortness of breath. The patient was initially at [facility] after suffering a mechanical fall 2 weeks ago where she was discharged to a nursing facility; however, at that point, she did have shortness of breath and was readmitted to [facility] for further care. She was found to have an elevated BNP and chest x-ray revealing congestive heart failure changes, thus the patient has been treated with diuretic therapy. She had an ultrasound performed for abdominal pain and found that she had ascites fluid. Thus, a viral hepatic panel was performed and shows ascites fluid. The viral hepatic panel then returned with hepatitis B IgM indeterminate, but the other studies were negative. GI is now asked for comment on this test. PAST MEDICAL HISTORY: Hypertension, hyperlipidemia, glaucoma, coronary artery disease, history of mechanical fall, congestive heart failure. PAST SURGICAL HISTORY: The patient denies any abdominal surgeries. FAMILY HISTORY: Noncontributory ALLERGIES: There are no known allergies to medications. SOCIAL HISTORY: The patient is currently living in a nursing facility. There is no documented history of alcoholism or smoking or illicit drug use. REVIEW OF SYSTEMS: A 12-point review of systems was performed with the patient and is negative other than the pertinent positives are mentioned in the history of present illness. CURRENT MEDICATIONS: Include albuterol, brimonidine eye drops, Coreg, Benadryl, Lasix, Motrin, lactobacillus, latanoprost, losartan. PHYSICAL EXAMINATION: VITAL SIGNS: Blood pressure is 144/78, pulse 72 beats per minute, respiratory rate is 18, oxygenation 96% on room air. GENERAL: The patient is lying in bed, alert and oriented x 3, in no apparent distress. HEAD, EARS, EYES, NOSE AND THROAT: Normocephalic, atraumatic appearing head. Pupils are equal and reactive to light. Extraocular muscles are intact with moist mucous membranes. NECK: There is JVD. There is no thyromegaly, no lymphadenopathy. CHEST: There are some crackles at both bases. CARDIOVASCULAR: S1, S2 present. Regular rate and rhythm. ABDOMEN: Mild distention, soft, nontender to palpation. No guarding, no rebound. EXTREMITIES: 1+ pitting edema bilaterally. Pulses are not present. SKIN: There is no obvious jaundice or cyanosis. LABORATORY DATA: White blood cell count 5.7, hemoglobin 14.4, platelet count is 241. INR 1.2. Sodium 138, BUN 31, creatinine 0.9, total bilirubin 1.3, AST 24, ALT 16, alkaline phosphatase 148. Hepatitis A IgM is negative. Hepatitis B surface antigen is negative. Hepatitis B core IgM antibody is indeterminate. Hepatitis C is negative. IMAGING STUDIES: The patient had abdominal ultrasound and shows there is ascites fluid. No evidence of cholelithiasis. IMPRESSION: This is a 67-year-old female with history of congestive heart failure, coronary artery disease, hypertension, hyperlipidemia, who was admitted to the hospital with shortness of breath, congestive heart failure exacerbation. She was found to have hepatitis B core IgM antibody as indeterminate and given the presence of ascites on ultrasound, GI is asked for evaluation. 1. Hepatitis B core IgM indeterminate level. 2. Ascites. 3. Congestive heart failure. 4. Coronary artery disease. 5. Hyperlipidemia. 6. Hypertension. DISCUSSION: I suspect that this indeterminate level of hepatitis B core IgM is likely a false positive, but we can confirm this by sending off a full panel of hepatitis B studies including surface antibody, surface antigen, core antibody total, repeating the core antibody IgM as well as hepatitis B PCR study. The patient did have ascites on exam, but she may have liver cirrhosis or portal hypertension. This could be due from DEWITT or cardiogenic cirrhosis, although the ultrasound did not comment on the cirrhotic nature of the liver. Given the presence of ascites, we will order an ultrasound-guided paracentesis if possible to send total protein levels and serum albumin to ascites albumin gradient study. RECOMMENDATIONS: 1. We will send the above hepatitis B studies. 2. We will also send autoimmune liver studies to complete the workup for possible cirrhosis. 3. We will try to order ultrasound-guided paracentesis if possible to send the protein levels and cell count and albumin. 4. Continue current management for the patient's congestive heart failure. Thank you for allowing me to participate in this patient's care. Please call if you have any further questions. JOB# [id number]
[2018-02-21 07:41] LABS: % BASOPHILS 0.8 % (0.0-2.0); % EOSINOPHILS 24.7 % (0.0-5.0); % LYMPHOCYTES 26.1 % (20.0-50.0); % MONOCYTES 9.6 % (2.0-10.0); % NEUTROPHILS 38.8 % (40.0-80.0); EOSINOPHILE ABSOLUTE 1.5 Th/cmm (0.1-0.4); HEMATOCRIT 45.2 % (41.0-60); HEMOGLOBIN 14.3 gm/dL (12-16); LYMPHOCYTE ABSOLUTE 1.6 Th/cmm (1.5-3.0); MEAN CELL VOLUME 85.7 fl (81-100); MEAN CORPUSCULAR HEMOGLOBIN 27.1 pg (27.0-31.0); MEAN CORPUSCULAR HGB CONC 31.7 pg (28.0-36.0); MEAN PLATELET VOLUME 8.1 fl; MONOCYTE ABSOLUTE 0.6 Th/cmm (0.3-1.0); NEUTROPHILE ABSOLUTE 2.3 Th/cmm (1.8-8.0); PLATELET COUNT 226 Th/cmm (150-400); RED BLOOD COUNT 5.27 Mil/cmm (3.80-5.20); RED CELL DISTRIBUTION WIDTH 19.8 % (11.5-20.0)
[2018-02-21 07:47] LABS: ALB/GLOB RATIO 0.8 (1.0-1.8); ALBUMIN 3.5 gm/dL (3.7-5.3); ALKALINE PHOSPHATASE 168 U/L (34-104); ANION GAP 11.8 (7.0-16.0); BILIRUBIN,TOTAL 1.3 mg/dL (0.3-1.0); BUN - UREA NITROGEN 39 mg/dL (7-25); CALCIUM SERUM 9.6 mg/dL (8.6-10.3); CHLORIDE 91 mEq/L (98-107); CREATININE - SERUM 0.9 mg/dL (0.6-1.2); GFR AFRICAN-AMERICAN > 60.0 ml/min (>90); GFR NON AFRICAN-AMERICAN > 60.0 ml/min; GLUCOSE 89 mg/dL (70-105); POTASSIUM SERUM 3.8 mEq/L (3.5-5.1); SGOT 26 U/L (13-39); SGPT/ALT 17 U/L (7-52); SODIUM SERUM 138 mEq/L (136-145); TOTAL PROTEIN,SERUM 7.7 gm/dL (6.0-8.3)
[2018-02-21] MEDS: Lactobacillus Rhamnosus GG 15 Billion CFU CAP.SPRINK PO SCH (09:10)
[2018-02-21] MEDS: Potassium Chloride 20 mEq ER Tab PO SCH ×2 (09:12→17:05)
--- NOTE | 2018-02-21 11:11 | Discharge Summary ---
DATE OF DISCHARGE: 02/21/2018 DATE OF DISCHARGE: To [facility] is 02/21/2018 PRINCIPAL DIAGNOSES: 1. Acute respiratory failure secondary to pulmonary edema. 2. Congestive heart failure exacerbation. 3. Systolic heart failure. 4. Hypertension. 5. Pulmonary hypertension. 6. Severe mitral regurgitation and tricuspid regurgitation by echocardiogram. 7. Degenerative joint disease. 8. Hepatitis B core IgM antibody indetermined positive. 9. Generalized debility. 10. Glaucoma. 11. History of fall. BRIEF STATEMENT FOR THE REASON FOR ADMISSION: A 67-year-old female transferred from [facility] to acute care facility after the patient was noted to have hypoxia. Please refer to my H and P for further information. HOSPITAL COURSE: The patient was initially under hospice care, but subsequently was transferred to hospice, was revoked. The patient was admitted to telemetry unit, provide oxygen, IV Lasix, beta kvng, SEBASTIEN and ARB, potassium supplement. Cardiology consultation requested. A 2D echocardiogram was also obtained. Nutritional support was provided. Monitor I's and O's was given. DVT prophylaxis also provided. Appropriate home medicine was reconciled. The patient started to improve with the treatment plan as prescribed. 2D echocardiogram with severe mitral regurgitation, tricuspid regurgitation, pulmonary hypertension and the patient was noted to have an ejection fraction of 40%. Daughter did mention that the patient was under hospice care with the cirrhosis of liver and she was concerned telling me about nobody told her about why she has cirrhosis of liver. Based on that, the patient did have a hepatitis panel, which did came out hepatitis B core antibody IgM indeterminate. GI consultation was requested as well. Abdominal ultrasound was done, which did not show any nodules on cirrhosis. The patient did note a right ovarian cystic lesion measuring 5.9 x 5.4 cm, which needed to be addressed though there was no evidence of any cirrhosis. Her synthetic function of the liver was also normal. The patient was noted to have a normal PT and PTT as well. Since the patient was provided medical therapy, she was significantly improving and participating in physical therapy. The patient's daughter, she is the power of civil rights attorney decided that the patient does not want to put under hospice care and she wants to give her a trial of rehabilitation. I did offer them, the patient to go back to [facility] and continue the rehabilitation, though the patient's daughters lives in [place] and she is requesting made to transfer to close by to her home. The patient will be transferred to [facility] close to the patient's daughter home for rehabilitation. The patient does have ovarian mass, which will be worked up as an outpatient. JOB# [id number]
[2018-02-21 11:17] LABS: HEP B CORE AB TOTAL Negative (Negative); HEP B SURFACE AB QUANT <3.1 mIU/mL (Immunity>9.9)
[2018-02-21 14:17] LABS: HEP B SURFACE AG QL Negative (Negative)
--- NOTE | 2018-02-21 16:09 | Progress Notes ---
DATE: IDENTIFICATION: A 67-year-old female. SUBJECTIVE: The patient seen and examined. The patient is feeling much better. The patient denies any chest pain or increasing shortness of breath. The patient is more alert, awake, participating in therapy as well. Discussed with the patient's daughter about the discharge planning. She is requesting not to transfer to [facility] since the patient lives in [place] and she prefers closer to her home half-way. OBJECTIVE: VITAL SIGNS: Temperature 96.9, pulse 76, respiratory rate 18, and blood pressure 120/68. HEENT: No facial asymmetry, resolving hematoma noted. NECK: Supple, no JVD. CARDIOVASCULAR: Regular. CHEST AND LUNGS: Equal in expansion. No wheezing. No crackles. ABDOMEN: Soft. EXTREMITIES: No edema. CLINICAL IMPRESSION: 1. Congestive heart failure exacerbation. 2. Severe MR, TR. 3. Indeterminate hepatitis B core antibody positive. 4. Hypertension. 5. Cardiomyopathy. 6. Questionable liver disease. 7. Debility. 8. Status post fall. PLAN: 1. Discharge plan to half-way today. 2. Outpatient followup on her lab tests. 3. The patient's family is requesting different half-way. We will put the patient in a different half-way and we will follow this patient in half-way. Care plan reviewed and discussed with the patient's daughter and the patient, both agreed with the current treatment plan. JOB# [id number]
[2018-02-22] MEDS: Albuterol/Ipratropium Neb 3 ML AERS HHN SCH ×4 (07:31→19:03)
[2018-02-22 08:07] LABS: ANION GAP 11.1 (7.0-16.0); BUN - UREA NITROGEN 45 mg/dL (7-25); CALCIUM SERUM 9.7 mg/dL (8.6-10.3); CARBON DIOXIDE 38.3 mEq/L (21.0-31.0); CHLORIDE 92 mEq/L (98-107); CREATININE - SERUM 0.9 mg/dL (0.6-1.2); GFR AFRICAN-AMERICAN > 60.0 ml/min (>90); GFR NON AFRICAN-AMERICAN > 60.0 ml/min; GLUCOSE 84 mg/dL (70-105); POTASSIUM SERUM 3.4 mEq/L (3.5-5.1); SODIUM SERUM 138 mEq/L (136-145)
[2018-02-22] MEDS: Potassium Chloride 20 mEq ER Tab PO SCH ×2 (08:34→16:52)
[2018-02-22] MEDS: Lactobacillus Rhamnosus GG 15 Billion CFU CAP.SPRINK PO SCH (08:35)
[2018-02-22] MEDS ORDERED: Potassium Chloride 20 mEq ER Tab PO ONE (14:44)
--- NOTE | 2018-02-22 17:43 | General Progress Note ---
Subjective - Review of Systems Subjective: Patient is seen and examined. No new events. Discharge was is on hold due to unable to get auth. Objective - Results Result Diagrams: 02/21/18 05:45 02/22/18 06:00 Recent Labs: Laboratory Last Values WBC 6.0 Th/cmm (4.8-10.8) 02/21/18 05:45 RBC 5.27 Mil/cmm (3.80-5.20) H 02/21/18 05:45 Hgb 14.3 gm/dL (12-16) 02/21/18 05:45 Hct 45.2 % (41.0-60) 02/21/18 05:45 MCV 85.7 fl (81-100) 02/21/18 05:45 MCH 27.1 pg (27.0-31.0) 02/21/18 05:45 MCHC Differential 31.7 pg (28.0-36.0) 02/21/18 05:45 RDW 19.8 % (11.5-20.0) 02/21/18 05:45 Plt Count 226 Th/cmm (150-400) 02/21/18 05:45 MPV 8.1 fl 02/21/18 05:45 Neutrophils % 38.8 % (40.0-80.0) L 02/21/18 05:45 Lymphocytes % 26.1 % (20.0-50.0) 02/21/18 05:45 Monocytes % 9.6 % (2.0-10.0) 02/21/18 05:45 Eosinophils % 24.7 % (0.0-5.0) H 02/21/18 05:45 Basophils % 0.8 % (0.0-2.0) 02/21/18 05:45 Neutrophils (Manual) 35 % (40-80) L 02/20/18 06:10 Lymphocytes 20 % (20-50) 02/20/18 06:10 Monocytes 8 % (2-10) 02/20/18 06:10 Eosinophils 30 % (0-5) H 02/20/18 06:10 Basophils 1 % (0-3) 02/20/18 06:10 Atypical Lymphocytes 6 % 02/20/18 06:10 Platelet Estimate ADEQUATE (NORMAL) 02/20/18 06:10 Anisocytosis 1+ 02/15/18 05:40 PT 12.7 SECONDS (9.5-11.5) H 02/16/18 15:05 INR 1.21 (0.5-1.4) 02/16/18 15:05 PTT (Actin FS) 26.3 SECONDS (26.0-38.0) 02/16/18 15:05 D-Dimer 1650 ng/mL (100-400) H 02/12/18 00:20 Specimen Source arterial 02/12/18 00:26 Sample Site right radial 02/12/18 00:26 pH 7.47 (7.35-7.45) H 02/12/18 00:26 pCO2 58.0 mmHg (35.0-45.0) H* 02/12/18 00:26 pO2 81.0 mmHg (80.0-100.0) 02/12/18 00:26 HCO3 37.3 mEq/L (20.0-26.0) H 02/12/18 00:26 Base Excess 15.9 mEq/L (-3.0-3.0) H 02/12/18 00:26 O2 Saturation 97.0 % (92.0-100.0) 02/12/18 00:26 Nirav Test yes 02/12/18 00:26 Vent Rate n/a 02/12/18 00:26 Inspired O2 28 02/12/18 00:26 Tidal Volume n/a 02/12/18 00:26 PEEP n/a 02/12/18 00:26 Pressure (ins/psv/peep) n/a 02/12/18 00:26 Critical Value abroedel 02/12/18 00:26 Sodium 138 mEq/L (136-145) 02/22/18 06:00 Potassium 3.4 mEq/L (3.5-5.1) L 02/22/18 06:00 Chloride 92 mEq/L (98-107) L 02/22/18 06:00 Carbon Dioxide 38.3 mEq/L (21.0-31.0) H 02/22/18 06:00 Anion Gap 11.1 (7.0-16.0) 02/22/18 06:00 BUN 45 mg/dL (7-25) H 02/22/18 06:00 Creatinine 0.9 mg/dL (0.6-1.2) 02/22/18 06:00 Est GFR ( Amer) > 60.0 ml/min (>90) 02/22/18 06:00 Est GFR (Non-Af Amer) > 60.0 ml/min 02/22/18 06:00 BUN/Creatinine Ratio 50.0 02/22/18 06:00 Glucose 84 mg/dL (70-105) 02/22/18 06:00 Calcium 9.7 mg/dL (8.6-10.3) 02/22/18 06:00 Magnesium 2.3 mg/dL (1.9-2.7) 02/18/18 05:40 Iron 50 02/16/18 15:05 TIBC 329 02/16/18 15:05 Iron Saturation 15 % (15-55) 02/16/18 15:05 Unsaturated IBC 279 02/16/18 15:05 Ferritin 54 ng/mL (15-150) 02/16/18 15:05 Total Bilirubin 1.3 mg/dL (0.3-1.0) H 02/21/18 05:45 AST 26 U/L (13-39) 02/21/18 05:45 ALT 17 U/L (7-52) 02/21/18 05:45 Alkaline Phosphatase 168 U/L (34-104) H 02/21/18 05:45 Creatine Kinase 17 U/L (30-223) L 02/12/18 23:19 Troponin I 0.02 ng/mL (0.01-0.05) 02/12/18 05:15 B-Natriuretic Peptide 389.0 pg/mL (5.0-100.0) H 02/22/18 06:00 Total Protein 7.7 gm/dL (6.0-8.3) 02/21/18 05:45 Albumin 3.5 gm/dL (3.7-5.3) L 02/21/18 05:45 Globulin 4.2 gm/dL 02/21/18 05:45 Albumin/Globulin Ratio 0.8 (1.0-1.8) L 02/21/18 05:45 Urine Source CATH 02/12/18 02:10 Urine Color YELLOW 02/12/18 02:10 Urine Clarity HAZY (CLEAR) 02/12/18 02:10 Urine pH 5.5 (4.6 - 8.0) 02/12/18 02:10 Ur Specific Adrian 1.025 (1.005-1.030) 02/12/18 02:10 Urine Protein 100 mg/dL (NEGATIVE) H 02/12/18 02:10 Urine Glucose (UA) NEGATIVE mg/dL (NEGATIVE) 02/12/18 02:10 Urine Ketones TRACE mg/dL (NEGATIVE) 02/12/18 02:10 Urine Blood SMALL (NEGATIVE) H 02/12/18 02:10 Urine Nitrate NEGATIVE (NEGATIVE) 02/12/18 02:10 Urine Bilirubin MODERATE (NEGATIVE) H 02/12/18 02:10 Urine Ictotest POSITIVE (NEGATIVE) 02/12/18 02:10 Urine Urobilinogen >=8.0 E.U./dL (0.2 - 1.0) H 02/12/18 02:10 Ur Leukocyte Esterase NEGATIVE (NEGATIVE) 02/12/18 02:10 Urine RBC 2-5 /hpf (0-5) 02/12/18 02:10 Urine WBC 10-25 /hpf (0-5) H 02/12/18 02:10 Ur Epithelial Cells MODERATE /lpf (FEW) 02/12/18 02:10 Urine Bacteria MODERATE /hpf (NONE SEEN) H 02/12/18 02:10 Hepatitis A IgM Ab Negative (Negative) 02/16/18 15:05 Hep Bs Antigen Negative (Negative) 02/20/18 06:10 Hep Bs Antibody, Quant <3.1 mIU/mL (Immunity>9.9) L 02/20/18 06:10 Hep B Core Total Ab Negative (Negative) 02/20/18 06:10 Hep B Core IgM Ab Indeterminate (Negative) H 02/16/18 15:05 Hepatitis C Antibody 0.1 s/co ratio (0.0-0.9) 02/16/18 15:05 - Physical Exam Vitals and I&O: Vital Signs Temp 98.3 F 02/22/18 16:00 Pulse 73 02/22/18 16:51 Resp 18 02/22/18 16:00 BP 127/71 02/22/18 16:51 Pulse Ox 95 02/22/18 12:49 Intake & Output 02/21/18 02/22/18 02/22/18 18:59 06:59 18:59 Intake Total 800 480 240 Balance 800 480 240 Weight (lbs) 71.849 kg 71.214 kg 71.849 kg Intake: Oral 800 480 240 Other: # Voids 3 3 # Bowel Movements 0 0 Weight Source Bedscale Bedscale Bedscale Active Medications: Current Medications Albuterol/Ipratropium (Duoneb Neb) 3 ml HHN Q6HRT SANAM Stop: 04/13/18 12:59 Last Admin: 02/22/18 12:49 Dose: 3 ml Brimonidine Tartrate (Alphagan 0.1% Ophth Soln) 1 drop EACH EYE TID SANAM Stop: 04/15/18 13:59 Last Admin: 02/22/18 15:32 Dose: 1 drop Carvedilol (Coreg) 6.25 mg PO BID SANAM Stop: 04/13/18 08:59 Last Admin: 02/22/18 16:51 Dose: 6.25 mg Diphenhydramine HCl (Benadryl) 25 mg PO Q8H PRN PRN Reason: Itching Stop: 04/15/18 13:22 Last Admin: 02/18/18 20:36 Dose: 25 mg Furosemide (Lasix) 40 mg IVP DAILY SANAM Stop: 04/24/18 08:59 Ibuprofen (Motrin) 400 mg PO Q8H PRN PRN Reason: pain Stop: 04/15/18 09:23 Last Admin: 02/19/18 09:55 Dose: 400 mg Lactobacillus Rhamnosus (Culturelle 15b) 1 each PO DAILY SAANM Stop: 04/14/18 08:59 Last Admin: 02/22/18 08:35 Dose: 1 each Latanoprost (Xalatan 0.005% Ophth Soln) 1 drop EACH EYE HS SANAM Stop: 04/15/18 20:59 Last Admin: 02/21/18 20:37 Dose: Not Given Losartan Potassium (Cozaar) 50 mg PO DAILY SANAM Stop: 04/13/18 08:59 Last Admin: 02/22/18 08:35 Dose: 50 mg Miscellaneous (Probiotic Screen) 1 ea MC PRN PRN PRN Reason: PROTOCOL Stop: 04/14/18 08:59 Potassium Chloride (Klor-Con) 20 meq PO DAILY SANAM Stop: 04/24/18 08:59 General: Alert, Cooperative, No acute distress HEENT: Atraumatic, PERRLA, EOMI Neck: Supple Cardiovascular: Regular rate, Normal S1, Normal S2, Systolic murmurs Lungs: Other (fine crackes.) Abdomen: Bowel sounds, Soft Extremities: Other (PP+1) Assessment/Plan - Assessment Assessment: CHF exacerbation. Severe MR and TR. Hypertension. DJD. Pulmonary Hypertension. Debility. Hep B core antibody positive indeterminate. - Plan Plan: Monitor lab. decrease IV lasix. Decrease K. Beta kvng and ARB. Med surg status. PT and OT. General nursing care. Continue current care. Follow cardiology recommendations. Discussed with staff. Nutritional Asmnt/Malnutr-PDOC - Dietary Evaluation Malnutrition Findings (Please click <Entered> for more info): Nutritional Asmnt/Malnutrition Start: 02/15/18 12: 02 Text: Status: Complete Freq: Protocol: Document 02/15/18 12:02 ANDREA (Rec: 02/15/18 12:14 ANDREA [id number]) Nutritional Asmnt/Malnutrition Patient General Information Diagnosis CHF Pertinent Medical Hx/Surgical Hx HTN, hyperlipidemia, CAD, DJD Subjective Information Pt asleep at time of visit Current Diet Order/ Nutrition Support Cardiac Pertinent Medications lasix, culturelle Pertinent Labs 02/15: Na 139, K 4.2, Cl 94, Co2 41.4, BUN 25, Cr 0.7, Ca 8 .9, mag 2.3 Nutritional Hx/Data Height 1.68 m Height (Calculated Centimeters) 167.6 Current Weight (lbs) 82.1 kg Weight (Calculated Kilograms) 82.1 Weight (Calculated Grams) 78375.2 Body Mass Index (BMI) 29.2 Weight Status Overweight GI Symptoms GI Symptoms None Last BM none noted Cultural/Ethnic/Restorationist Belief unknown Usual diet at home unknown Skin Integrity/Comment: spring score 14 Estimated Nutritional Goals BEE in Kcals: Using Current wt Calories/Kcals/Kg 25-30kcals/kg Kcals Calculated 0-2460kcals/day Protein: Using Current wt Protein g/kg/kg Protein Calculated 82g/day Fluid: ml per MD Nutritional Problem 1. Problem Problem No nutrition diagnosis at this time Intervention/Recommendation Comments Recommend continuing Cardiac Expected Outcomes/Goals Expected Outcomes/Goals PO intake >75% of meals
[2018-02-23] MEDS: Albuterol/Ipratropium Neb 3 ML AERS HHN SCH ×4 (00:43→19:06)
[2018-02-23 06:27] LABS: ANION GAP 12.4 (7.0-16.0); BUN - UREA NITROGEN 49 mg/dL (7-25); CALCIUM SERUM 9.8 mg/dL (8.6-10.3); CARBON DIOXIDE 35.1 mEq/L (21.0-31.0); CHLORIDE 93 mEq/L (98-107); CREATININE - SERUM 0.9 mg/dL (0.6-1.2); GFR AFRICAN-AMERICAN > 60.0 ml/min (>90); GFR NON AFRICAN-AMERICAN > 60.0 ml/min; GLUCOSE 141 mg/dL (70-105); POTASSIUM SERUM 3.5 mEq/L (3.5-5.1); SODIUM SERUM 137 mEq/L (136-145)
[2018-02-23] MEDS: Potassium Chloride 20 mEq ER Tab PO SCH (09:28)
[2018-02-23] MEDS: Lactobacillus Rhamnosus GG 15 Billion CFU CAP.SPRINK PO SCH (09:28)
--- NOTE | 2018-02-23 09:57 | Diagnostic Imaging Report ---
Right knee 3 views Indication: pain Comparison: none Findings: Advanced degenerative changes are noted including vascular the medial knee compartment. No evidence of an acute fracture or joint effusion. Atherosclerosis is noted. Impression: No evidence of an acute fracture. Advanced degenerative changes including advanced narrowing of the medial knee compartment. Atherosclerotic vascular disease. In the setting of trauma, if clinical symptoms persist and there is continued concern for an occult fracture, follow up exams in 5-7 days is suggested.
--- NOTE | 2018-02-23 09:58 | Diagnostic Imaging Report ---
Left knee 3 views Indication: pain Comparison: none Findings: ] Advanced degenerative changes are noted including advanced narrowing of the medial knee compartment. There is valgus deformity of the femur. No evidence of an acute fracture or joint effusion. Atherosclerosis is noted. Impression: No evidence of an acute fracture. Advanced degenerative changes. Atherosclerotic vascular disease. In the setting of trauma, if clinical symptoms persist and there is continued concern for an occult fracture, follow up exams in 5-7 days is suggested.
--- NOTE | 2018-02-23 16:44 | Progress Notes ---
DATE: 02/23/2018 IDENTIFICATION: A 67-year-old female. The patient seen and examined. The patient is lying in the bed. No new event. The patient did have x-rays of her knee, which did reveal the patient has osteoarthritis. The patient has atherosclerotic vascular changes also noted. PHYSICAL EXAMINATION: VITAL SIGNS: Temperature 97.7, pulse 74, respiratory rate 16, blood pressure is 103/65. HEENT: No facial asymmetry. NECK: Supple, no JVD. HEART: Regular. CHEST: Lung equal in expansion. No wheezing, no crackles. ABDOMEN: Soft. EXTREMITIES: No edema. NEUROLOGIC: Decreased power on the lower extremity noted. CLINICAL IMPRESSION: 1. Hepatitis B core antibody IgM indeterminate positive. 2. Congestive heart failure. 3. Severe mitral regurgitation and tricuspid regurgitation. 4. Congestive heart failure. 5. Degenerative joint disease. 6. Coronary artery disease. 7. Hypertension. 8. Fall risk. 9. Abnormal liver function test. PLAN: Continue current medication as patient was receiving. Once we get the authorization to transfer the patient to assisted, we will discharge the patient to assisted. The patient will be followed by myself in a assisted. Care plan has been reviewed and discussed with staff as well. JOB# [id number]
[2018-02-24] MEDS: Albuterol/Ipratropium Neb 3 ML AERS HHN SCH ×4 (01:29→18:43)
[2018-02-24] MEDS: Lactobacillus Rhamnosus GG 15 Billion CFU CAP.SPRINK PO SCH (09:04)
[2018-02-24] MEDS: Potassium Chloride 20 mEq ER Tab PO SCH (09:05)
[2018-02-24 14:16] LABS: ANTI-NUCLEAR AB SCREEN Negative; FERRITIN 97 ng/mL (15-150)
--- NOTE | 2018-02-24 22:33 | Progress Notes ---
DATE: 02/24/2018 PATIENT'S IDENTIFICATION: A 67-year-old female. The patient seen and examined. The patient is feeling better, continues to complain of the pain on her knee. The patient denies any chest pain, increasing shortness of breath, or palpitation. PHYSICAL EXAMINATION: On exam, VITAL SIGNS: Temperature 97.9, pulse is 66, respiratory rate 18, blood pressure 121/64. HEENT: Resolving hematoma. NECK: Supple, no JVD. HEART: Regular. CHEST: Lung equal in expansion, no expiratory wheezing. ABDOMEN: Soft. EXTREMITIES: No edema. Diffuse osteoarthritic changes noted. CLINICAL IMPRESSION: 1. Congestive heart failure exacerbation. 2. Systolic heart failure with ejection fraction of 40%. 3. Escherichia coli urinary tract infection. 4. Hepatitis B core antibody IgM positive indeterminate. 5. Prerenal azotemia. 6. Degenerative joint disease. 7. Atherosclerotic heart disease. 8. Decline in self-care and mobility. PLAN: The patient seems medically stable to go to lower level of care. Further care can be provided to the lower level of care. The patient will be discharged once appropriate authorization and facility is selected. Care plan discussed with staff. JOB# [id number]
[2018-02-25] MEDS: Albuterol/Ipratropium Neb 3 ML AERS HHN SCH ×3 (01:00→13:20)
[2018-02-25] MEDS: Potassium Chloride 20 mEq ER Tab PO SCH (10:03)
[2018-02-25] MEDS: Lactobacillus Rhamnosus GG 15 Billion CFU CAP.SPRINK PO SCH (10:03)
[2018-02-25 10:45] LABS: % EOSINOPHILS 26.1 % (0.0-5.0); % LYMPHOCYTES 23.3 % (20.0-50.0); % MONOCYTES 8.1 % (2.0-10.0); % NEUTROPHILS 41.5 % (40.0-80.0); BASOPHILE ABSOLUTE 0.1 Th/cumm (0-0.2); EOSINOPHILE ABSOLUTE 1.8 Th/cmm (0.1-0.4); HEMATOCRIT 45.4 % (41.0-60); HEMOGLOBIN 14.5 gm/dL (12-16); LYMPHOCYTE ABSOLUTE 1.6 Th/cmm (1.5-3.0); MEAN CELL VOLUME 85.3 fl (81-100); MEAN CORPUSCULAR HEMOGLOBIN 27.1 pg (27.0-31.0); MEAN CORPUSCULAR HGB CONC 31.8 pg (28.0-36.0); MEAN PLATELET VOLUME 8.3 fl; MONOCYTE ABSOLUTE 0.6 Th/cmm (0.3-1.0); NEUTROPHILE ABSOLUTE 2.8 Th/cmm (1.8-8.0); PLATELET COUNT 181 Th/cmm (150-400); RED BLOOD COUNT 5.33 Mil/cmm (3.80-5.20); RED CELL DISTRIBUTION WIDTH 17.6 % (11.5-20.0); WHITE BLOOD COUNT 6.9 Th/cmm (4.8-10.8)
[2018-02-25 11:08] LABS: ALB/GLOB RATIO 0.9 (1.0-1.8); ALBUMIN 3.7 gm/dL (3.7-5.3); ALKALINE PHOSPHATASE 153 U/L (34-104); ANION GAP 8.8 (7.0-16.0); BILIRUBIN,TOTAL 1.3 mg/dL (0.3-1.0); BUN - UREA NITROGEN 49 mg/dL (7-25); CARBON DIOXIDE 35.7 mEq/L (21.0-31.0); CHLORIDE 94 mEq/L (98-107); CREATININE - SERUM 0.8 mg/dL (0.6-1.2); GFR AFRICAN-AMERICAN > 60.0 ml/min (>90); GFR NON AFRICAN-AMERICAN > 60.0 ml/min; GLUCOSE 161 mg/dL (70-105); POTASSIUM SERUM 3.5 mEq/L (3.5-5.1); SGOT 35 U/L (13-39); SGPT/ALT 21 U/L (7-52); SODIUM SERUM 135 mEq/L (136-145); TOTAL PROTEIN,SERUM 7.7 gm/dL (6.0-8.3)
--- NOTE | 2018-02-26 05:56 | Progress Notes ---
DATE: 02/25/2018 IDENTIFICATION: A 67-year-old female patient. SUBJECTIVE: The patient is seen and examined. The patient is lying in the bed. No new event. Awaiting disposition to lower level of care. No new complaint. OBJECTIVE: VITAL SIGNS: Temperature 97.3, pulse 63, respiratory rate 18, blood pressure 137/65. HEENT: No facial asymmetry, resolving hematoma noted. NECK: Supple. No JVD. HEART: Regular. Positive S3. Grade 3/6 systolic murmur noted. CHEST: Lung equal in expansion. No wheezing. No crackles. ABDOMEN: Soft. No guarding or rigidity. Bowel sounds are present. No palpable mass. EXTREMITIES: No edema. CLINICAL IMPRESSIONS: 1. Congestive heart failure exacerbation, resolving. 2. Hypertension. 3. Mitral regurgitation. 4. Tricuspid regurgitation. 5. Pulmonary hypertension. 6. Degenerative joint disease. 7. Atherosclerotic heart disease. 8. Indeterminant HBS, hepatitis B core antigen antibody positive. 9. Ovarian mass, workup to be done as an outpatient. PLAN: The patient is to receive continuation of the same medication as the patient was receiving. We will get the followup lab today as well. Once the patient gets the placement, we will discharge this patient to lower level of care. The patient will have outpatient workup for ovarian mass considering CORPORATE COMPLIANCE DIRECTOR service is not available at [facility]. JOB# [id number]
== END 2018-02-25 18:55 | DRG 291 ==
LOC: ER 00:11 → TELE 02:55
PROVIDERS: ADMIT Internal Medicine; ATTEND Internal Medicine
DX: I13.0 Hypertensive heart and chronic kidney disease with heart failure and stage 1 through stage 4 chronic kidney disease, or unspecified chronic kidney disease (principal); J96.01 Acute respiratory failure with hypoxia; I50.23 Acute on chronic systolic (congestive) heart failure; J96.02 Acute respiratory failure with hypercapnia; S06.0X9A Concussion with loss of consciousness of unspecified duration, initial encounter; N39.0 Urinary tract infection, site not specified; E87.3 Alkalosis; B19.10 Unspecified viral hepatitis B without hepatic coma; R18.8 Other ascites; I42.9 Cardiomyopathy, unspecified; E78.5 Hyperlipidemia, unspecified; M19.90 Unspecified osteoarthritis, unspecified site; E66.01 Morbid (severe) obesity due to excess calories; M81.0 Age-related osteoporosis without current pathological fracture; H40.9 Unspecified glaucoma; N18.3 Chronic kidney disease, stage 3 (moderate); W18.30XA Fall on same level, unspecified, initial encounter; Y93.89 Activity, other specified; Y92.89 Other specified places as the place of occurrence of the external cause; Y99.8 Other external cause status; I25.119 Atherosclerotic heart disease of native coronary artery with unspecified angina pectoris; S05.12XA Contusion of eyeball and orbital tissues, left eye, initial encounter; S05.11XA Contusion of eyeball and orbital tissues, right eye, initial encounter; B96.20 Unspecified Escherichia coli [E. coli] as the cause of diseases classified elsewhere; I08.1 Rheumatic disorders of both mitral and tricuspid valves; I27.20 Pulmonary hypertension, unspecified; N83.9 Noninflammatory disorder of ovary, fallopian tube and broad ligament, unspecified; Z91.81 History of falling
CPT/HCPCS: 36415-UA; 70450-TC; 71045-TC; 73562-TC-LT; 73562-TC-RT; 76700-TC; 76705-TC; 80048-TC; 80053-TC; 80074-90; 81001-TC; 82042-TC; 82550-TC; 82728-90; 82803-TC; 83540-90; 83550-90; 83735-TC; 83880-TC; 84484-TC; 85007-TC; 85025-TC; 85027-TC; 85379-TC; 85610-TC; 85730-TC; 86038-90; 86704-90; 86706-90; 87086-90; 87340-90; 87341-90; 93005; 93307-TC; 94760; 96374; 97530; J0456; J0696; J1940; J7040; X3904; Z7610

== ENCOUNTER 2018-04-15 21:05 | Inpatient (IN) | payer MEDICARE, MEDICAID ==
--- NOTE | 2018-04-15 21:36 | ED Physician Chart ---
ED Chief Complaint/HPI - Patient Information Date Seen:: 04/15/18 Time Seen:: 21:36 Chief Complaint:: Elevated BNP History of Present Illness:: 68 yo female with complex medical history, was brought from [facility] to ER for evaluation of elevated BNP at 2857 pg/ul two days ago with increased shortness of breath. Her O2 sat was 99% on room air. Patient had 1+ edema of bilateral lower extremities. BUN/Cr was 31.3 indicating dehydration. Allergies:: Allergies Allergy/AdvReac Type Severity Reaction Status Date / Time No Known Allergies Allergy Verified 04/15/18 21:24 Vitals:: Vital Signs - 8 hr 04/15/18 21:10 Temp 97.2 F HR 74 RR 18 BP 150/98 O2 Sat % 100 ED Review of Systems - Review of Systems General/Constitutional: No fever, No chills Skin: No rash Head: No headache Eyes: No pain ENT: No nasal drainage Neck: No neck pain Cardio Vascular: No chest pain Pulmonary: SOB, No cough GI: No nausea, No vomiting Musculoskeletal: Bone or joint pain Neurological: No focal symptoms ED Past Medical History - Past Medical History Past Medical History: HTN, CAD, CHF (Acute systolic heart failure), Dyslipidemia , Arthritis, Other (Combined rheumatic disorders of mitral, aortic and tricuspid valves, Difficulty walking, Ascites, Hepatitis B core Ab positive, Pulmonary hypertension, Glaucoma, Dermatitis, Right ovarian cyst) Social History: Non Smoker, No Alcohol, No Drug Use Surgical History: None Psychiatricy History: Other (Anxiety) Family Medical History - Family Member Mother History Unknown: Yes ED Physical Exam - Physical Examination General/Constitutional: Awake (x 2) Head: Atraumatic Eyes: PERRL Skin: No ecchymosis ENMT: Nasal exam nl Neck: No nuchal rigidity Respiratory: No Wheeze/Rhonchi/Rales Other Respiratory comments:: Diminished left lower lung sound Cardio Vascular: RRR, NL S1 S2 Other Cardio Vascular comments:: II/ systolic murmur GI: No tenderness/rebounding/guarding Other comments:: Urinary incontinent Other Extremities comments:: 1+ edema of bilateral lower extremities. Bilateral knee pain and swelling Neuro/Psych: Alert/oriented ED Labs/Radiology/EKG Results - Lab Results Results: Laboratory Last Values WBC 4.9 Th/cmm (4.8-10.8) 04/15/18 21:37 RBC 4.22 Mil/cmm (3.80-5.20) 04/15/18 21:37 Hgb 12.5 gm/dL (12-16) 04/15/18 21:37 Hct 37.7 % (41.0-60) L 04/15/18 21:37 MCV 89.4 fl (81-100) 04/15/18 21:37 MCH 29.5 pg (27.0-31.0) 04/15/18 21:37 MCHC Differential 33.1 pg (28.0-36.0) 04/15/18 21:37 RDW 18.9 % (11.5-20.0) 04/15/18 21:37 Plt Count 227 Th/cmm (150-400) 04/15/18 21:37 MPV 7.6 fl 04/15/18 21:37 Neutrophils % 64.0 % (40.0-80.0) 04/15/18 21:37 Lymphocytes % 21.1 % (20.0-50.0) 04/15/18 21:37 Monocytes % 7.6 % (2.0-10.0) 04/15/18 21:37 Eosinophils % 6.6 % (0.0-5.0) H 04/15/18 21:37 Basophils % 0.7 % (0.0-2.0) 04/15/18 21:37 Sodium 136 mEq/L (136-145) 04/15/18 21:37 Potassium 4.0 mEq/L (3.5-5.1) 04/15/18 21:37 Chloride 101 mEq/L (98-107) 04/15/18 21:37 Carbon Dioxide 28.7 mEq/L (21.0-31.0) 04/15/18 21:37 Anion Gap 10.3 (7.0-16.0) 04/15/18 21:37 BUN 17 mg/dL (7-25) 04/15/18 21:37 Creatinine 0.7 mg/dL (0.6-1.2) 04/15/18 21:37 Est GFR ( Amer) > 60.0 ml/min (>90) 04/15/18 21:37 Est GFR (Non-Af Amer) > 60.0 ml/min 04/15/18 21:37 BUN/Creatinine Ratio 24.3 04/15/18 21:37 Glucose 126 mg/dL (70-105) H 04/15/18 21:37 Calcium 8.9 mg/dL (8.6-10.3) 04/15/18 21:37 Magnesium 2.1 mg/dL (1.9-2.7) 04/15/18 21:37 Total Bilirubin 1.5 mg/dL (0.3-1.0) H 04/15/18 21:37 AST 19 U/L (13-39) 04/15/18 21:37 ALT 16 U/L (7-52) 04/15/18 21:37 Alkaline Phosphatase 171 U/L (34-104) H 04/15/18 21:37 Troponin I 0.01 ng/mL (0.01-0.05) 04/15/18 21:37 B-Natriuretic Peptide 2920.0 pg/mL (5.0-100.0) H 04/15/18 21:37 Total Protein 6.8 gm/dL (6.0-8.3) 04/15/18 21:37 Albumin 3.5 gm/dL (3.7-5.3) L 04/15/18 21:37 Globulin 3.3 gm/dL 04/15/18 21:37 Albumin/Globulin Ratio 1.1 (1.0-1.8) 04/15/18 21:37 Triglycerides 96 mg/dL (<150) 04/15/18 21:37 Cholesterol 89 mg/dL (<200) 04/15/18 21:37 LDL Cholesterol Direct 51 mg/dL (75-193) L 04/15/18 21:37 HDL Cholesterol 28 mg/dL (23-92) 04/15/18 21:37 TSH 1.39 uIU/ml (0.34-5.60) 04/15/18 21:37 - Radiology Results Results: CXR: cardiomegaly, increased interstitial lung markings, possible left pleural effusion - EKG Interpretations EKG Time:: 21:41 Rate & Rhythm: 71 bpm, sinus rhythm [place]: Left ventricular hypertrophy Intervals: [place] 157, QRS 103 Comments:: Borderline T abnormalities ED Assessment - Assessment General Assessment: CHF exacerbation Systolic heart failure Cardiomyopathy Coronary artery disease Hypertension Hyperlipidemia Mitral regurgitation and tricuspid regurgitation Combined rheumatic disorders of mitral, aortic and tricuspid valves Proteinuria Difficulty walking Ascites Hepatitis B core Ab positive Pulmonary hypertension Glaucoma Right ovarian cyst Assessment/Comments:: CBC, CMP, Trop, BNP, TSH, HbA1c, UA CXR, EKG Lasix 40mg IV Admit to telemetry ED Septic Shock - . Is Septic Shock (SBP<90, OR Lactate>4 mmol\L) present?: No - <6hrs of presentation: Vital Signs: Vital Signs - 8 hr //18 21:10 Temp 97.2 F HR 74 RR 18 BP 150/98 O2 Sat % 100 ED Reassessment (Disposition) - Reassessment Reassessment Condition:: Improved - Patient Disposition Discharge/Transfer:: Acute Care w/in this hosp Admitting Medical Physician:: Pako Dumont
[2018-04-15 21:49] LABS: % BASOPHILS 0.7 % (0.0-2.0); % EOSINOPHILS 6.6 % (0.0-5.0); % LYMPHOCYTES 21.1 % (20.0-50.0); % MONOCYTES 7.6 % (2.0-10.0); EOSINOPHILE ABSOLUTE 0.3 Th/cmm (0.1-0.4); HEMATOCRIT 37.7 % (41.0-60); HEMOGLOBIN 12.5 gm/dL (12-16); MEAN CELL VOLUME 89.4 fl (81-100); MEAN CORPUSCULAR HEMOGLOBIN 29.5 pg (27.0-31.0); MEAN CORPUSCULAR HGB CONC 33.1 pg (28.0-36.0); MEAN PLATELET VOLUME 7.6 fl; MONOCYTE ABSOLUTE 0.4 Th/cmm (0.3-1.0); NEUTROPHILE ABSOLUTE 3.2 Th/cmm (1.8-8.0); PLATELET COUNT 227 Th/cmm (150-400); RED BLOOD COUNT 4.22 Mil/cmm (3.80-5.20); RED CELL DISTRIBUTION WIDTH 18.9 % (11.5-20.0); WHITE BLOOD COUNT 4.9 Th/cmm (4.8-10.8)
[2018-04-15 22:01] LABS: ALB/GLOB RATIO 1.1 (1.0-1.8); ALBUMIN 3.5 gm/dL (3.7-5.3); ALKALINE PHOSPHATASE 171 U/L (34-104); ANION GAP 10.3 (7.0-16.0); BILIRUBIN,TOTAL 1.5 mg/dL (0.3-1.0); BUN - UREA NITROGEN 17 mg/dL (7-25); CALCIUM SERUM 8.9 mg/dL (8.6-10.3); CARBON DIOXIDE 28.7 mEq/L (21.0-31.0); CHLORIDE 101 mEq/L (98-107); CHOLESTEROL 89 mg/dL (<200); CREATININE - SERUM 0.7 mg/dL (0.6-1.2); GFR AFRICAN-AMERICAN > 60.0 ml/min (>90); GFR NON AFRICAN-AMERICAN > 60.0 ml/min; GLUCOSE 126 mg/dL (70-105); HDL -HIGH DENSITY LIPOPROTEIN 28 mg/dL (23-92); MAGNESIUM 2.1 mg/dL (1.9-2.7); SGOT 19 U/L (13-39); SGPT/ALT 16 U/L (7-52); SODIUM SERUM 136 mEq/L (136-145); TOTAL PROTEIN,SERUM 6.8 gm/dL (6.0-8.3); TRIGLYCERIDES 96 mg/dL (<150)
[2018-04-15 22:46] LABS: URINE MICROSCOPIC INDICATED? YES; URINE SOURCE RANDOM
[2018-04-15 22:47] LABS: URINE BILIRUBIN NEGATIVE (NEGATIVE); URINE BLOOD TRACE (NEGATIVE); URINE GLUCOSE (UA) NEGATIVE (NEGATIVE); URINE KETONE NEGATIVE (NEGATIVE); URINE LEUKOCYTE ESTERASE NEGATIVE (NEGATIVE); URINE NITRATE NEGATIVE (NEGATIVE); URINE PROTEIN 100 mg/dL (NEGATIVE)
[2018-04-15 22:56] LABS: URINE BACTERIA FEW /hpf (NONE SEEN); URINE CLARITY CLEAR (CLEAR); URINE COLOR YELLOW; URINE EPITHELIAL CELLS MODERATE /lpf (FEW); URINE WBC 0-2 /hpf (0-5)
[2018-04-15] MEDS ORDERED: Albuterol/Ipratropium Neb 3 ML AERS HHN PRN (23:32)
[2018-04-16] MEDS: Albuterol/Ipratropium Neb 3 ML AERS HHN SCH ×4 (01:29→18:57)
[2018-04-16] MEDS: Potassium Chloride 20 mEq ER Tab PO SCH ×3 (02:43→16:18)
[2018-04-16 03:28] VITALS: BP 150/97
[2018-04-16 08:13] LABS: HEP A AB IGM Negative (Negative); HEP B CORE IGM Negative (Negative); HEP B SURFACE AG QL Negative (Negative); HEP C ANTIBODY 0.2 s/co ratio (0.0-0.9)
--- NOTE | 2018-04-16 09:07 | Diagnostic Imaging Report ---
Exam: Chest x-ray. HISTORY: Shortness of breath. Findings: Frontal examination of chest reviewed the study compared to prior examination of 02/20/2018 demonstrates severe rotation of patient. There is evidence for cardiomegaly. Left basilar infiltrate and effusion cannot be excluded. Bony thorax intact. The right lung parenchyma is well aerated. IMPRESSION: Severe rotation of patient. Question of left-sided the lower left lower lobe pneumonia superimposed effusion. Cardiomegaly. Clinical correlation follow-up exam is recommended.
[2018-04-16] MEDS ORDERED: MOMETASONE FUROATE NS SCH (11:45)
[2018-04-16] MEDS: Lactobacillus Rhamnosus GG 15 Billion CFU CAP.SPRINK PO SCH (12:30)
--- NOTE | 2018-04-16 14:21 | History & Physical ---
ADMIT DATE: 04/16/2018 PATIENT IDENTIFICATION: A 68-year-old female. CHIEF COMPLAINT: "I can't breath." Abnormal labs. HISTORY OF PRESENT ILLNESS: A 68-year-old [place] female resident of detention, brought in to the Emergency Room from [place] after the patient was noted to have elevated BNP of 2800+ associated with shortness of breath and considering her history of congestive heart failure. The patient was advised to be admitted. The patient was seen by Emergency Room MD and noted to have elevated BNP with chest x-ray consistent with cardiomegaly and CHF. PAST MEDICAL HISTORY: Remarkable for: 1. Congestive heart failure. 2. Systolic heart failure. 3. Hypertension. 4. Pulmonary hypertension. 5. Severe mitral regurgitation. 6. DJD 7. Glaucoma. MEDICATIONS: List has been reviewed and reconciled appropriately. ALLERGIES: The patient is not allergic to any medication. SOCIAL HISTORY: The patient resides in a detention. No history of smoking cigarette, alcohol, or drug use. FAMILY MEDICAL HISTORY: Remarkable for diabetes and hypertension. REVIEW OF SYSTEMS: The patient denies any headache, blurred vision, double vision, dysphagia, odynphagia, runny nose, stuffy nose, complaint of fever. The patient denies any fever or chills. Complains of cough and congestion. Also admits to have paroxysmal nocturnal dyspnea, no orthopnea. Denies any seizure or syncopal episode. Denies any hematuria, hematochezia, or melena. PHYSICAL EXAMINATION: GENERAL: Alert, awake, lying in the bed with some respiratory distress. VITAL SIGNS: Temperature 98, pulse is 80, respiratory rate 24, blood pressure is 142/80. HEENT: Normocephalic, atraumatic. Extraocular muscles are intact. Tongue more pink and coated. Oropharynx congested. Poor dentition noted. NECK: Supple, no JVD, no hepatojugular reflex. No lymphadenopathy, thyromegaly, or carotid bruit. HEART: Both heart sounds are regular. Grade 3/6 systolic murmur noted. CHEST AND LUNGS: Equal in expansion. Fine basilar crackles. ABDOMEN: Soft. No guarding, no rigidity. Bowel sounds are normal. No palpable mass. EXTREMITIES: +1 edema, no calf tenderness. NEUROLOGIC: Alert, awake, follows commands. Moving upper and lower extremities without any difficulty. AVAILABLE DIAGNOSTIC DATA: Chest x-ray consistent with cardiomegaly with congestive heart failure. White count of 4.9, hemoglobin 12.5, platelet count of 227, BUN and creatinine 7 and 0.7, glucose of 126. Magnesium 1, total bilirubin of 1.5, BNP of 2920 with hepatitis antibody reported negative. CLINICAL IMPRESSIONS: 1. Acute pulmonary edema. 2. Congestive heart failure exacerbation. 3. Acute on chronic respiratory failure. 4. Severe mitral regurgitation. 5. Pulmonary hypertension. 6. History of ovarian mass, full workup to be done as an outpatient. 7. Degenerative joint disease. 8. Debility. 9. Coronary artery disease. PLAN: 1. Admit this patient to telemetry unit, provide oxygen. 2. Nebulizer treatment. 3. IV Lasix. 4. ARB. 5. Beta kvng. 6. Obtain three sets of cardiac enzymes, EKG to rule out for acute myocardial infarction. 7. Cardiology consultation. 8. Appropriate home medicine reconciliation. 9. Follow lab. 10. Follow protection consultant recommendation. 11. Care plan reviewed and discussed with staff. JOB# [id number]
[2018-04-17] MEDS: Albuterol/Ipratropium Neb 3 ML AERS HHN SCH ×4 (00:52→19:32)
[2018-04-17 06:01] LABS: % BASOPHILS 0.5 % (0.0-2.0); % EOSINOPHILS 7.3 % (0.0-5.0); % LYMPHOCYTES 24.6 % (20.0-50.0); % MONOCYTES 8.9 % (2.0-10.0); % NEUTROPHILS 58.7 % (40.0-80.0); EOSINOPHILE ABSOLUTE 0.4 Th/cmm (0.1-0.4); HEMOGLOBIN 11.8 gm/dL (12-16); LYMPHOCYTE ABSOLUTE 1.2 Th/cmm (1.5-3.0); MEAN CELL VOLUME 89.6 fl (81-100); MEAN CORPUSCULAR HEMOGLOBIN 29.4 pg (27.0-31.0); MEAN CORPUSCULAR HGB CONC 32.8 pg (28.0-36.0); MEAN PLATELET VOLUME 7.9 fl; MONOCYTE ABSOLUTE 0.4 Th/cmm (0.3-1.0); PLATELET COUNT 229 Th/cmm (150-400); RED BLOOD COUNT 4.02 Mil/cmm (3.80-5.20); RED CELL DISTRIBUTION WIDTH 18.7 % (11.5-20.0)
[2018-04-17 06:26] LABS: ALBUMIN 3.1 gm/dL (3.7-5.3); ALKALINE PHOSPHATASE 148 U/L (34-104); ANION GAP 11.6 (7.0-16.0); BILIRUBIN,TOTAL 1.6 mg/dL (0.3-1.0); BUN - UREA NITROGEN 16 mg/dL (7-25); CALCIUM SERUM 8.6 mg/dL (8.6-10.3); CARBON DIOXIDE 32.3 mEq/L (21.0-31.0); CHLORIDE 99 mEq/L (98-107); CREATININE - SERUM 0.7 mg/dL (0.6-1.2); GFR AFRICAN-AMERICAN > 60.0 ml/min (>90); GFR NON AFRICAN-AMERICAN > 60.0 ml/min; GLUCOSE 120 mg/dL (70-105); MAGNESIUM 1.9 mg/dL (1.9-2.7); POTASSIUM SERUM 3.9 mEq/L (3.5-5.1); SGOT 17 U/L (13-39); SGPT/ALT 14 U/L (7-52); SODIUM SERUM 139 mEq/L (136-145); TOTAL PROTEIN,SERUM 6.3 gm/dL (6.0-8.3)
[2018-04-17] MEDS: Fluticasone Propionate 0.05mg/Actuation 16gm Nasal Spray NS SCH (09:20)
[2018-04-17] MEDS: Pantoprazole 40 mg EC Tab PO SCH (09:21)
[2018-04-17] MEDS: Lactobacillus Rhamnosus GG 15 Billion CFU CAP.SPRINK PO SCH (09:21)
[2018-04-17] MEDS: Potassium Chloride 20 mEq ER Tab PO SCH ×2 (09:21→17:34)
--- NOTE | 2018-04-17 09:34 | Diagnostic Imaging Report ---
Portable chest x-ray HISTORY: Shortness of breath Compared to prior exam of April 15, 2018, there is persistent marked cardiomegaly. Evidence for small left pleural effusion. There is a degree of pulmonary vascular redistribution consistent with an element of cardiac decompensation. No anupama pulmonary edema. IMPRESSION: 1. Cardiomegaly with cardiomegaly along with a small left pleural effusion changes consistent with a degree of congestive heart failure without anupama pulmonary edema.
[2018-04-17 17:08] LABS: A1C % 5.6 % (4.0-6.0)
--- NOTE | 2018-04-17 18:37 | Progress Notes ---
DATE: IDENTIFICATION: A 68-year-old female. SUBJECTIVE: The patient is seen and examined. The patient is lying in the bed. The patient has no new complaint. OBJECTIVE: VITAL SIGNS: Temperature 96.9, pulse 60, respiratory rate is 18, blood pressure 140/79. HEENT: No facial asymmetry. NECK: Supple, no JVD. HEART: Regular with grade 3/6 systolic murmur noted. CHEST AND LUNGS: Equal in expansion. Fine basilar crackles. ABDOMEN: Soft. No guarding, rigidity. Bowel sounds are present. No palpable mass. EXTREMITIES: No edema. AVAILABLE DIAGNOSTIC DATA: White count of 5, hemoglobin 11.8, platelet count of 229. BUN and creatinine 16 and 0.7. BNP is 2140. CLINICAL IMPRESSION: 1. Congestive heart failure exacerbation. 2. Cardiomyopathy. 3. Severe tricuspid regurgitation and mitral regurgitation. 4. Pulmonary hypertension. 5. Cardiomyopathy. 6. History of ovarian cyst. Workup to be done as an outpatient. 7. Degenerative joint disease. 8. Debility. PLAN: 1. Continue to provide oxygen. 2. Nebulizer treatment. 3. IV Lasix. 4. Beta kvng. 5. ARB. 6. Cardiology consultation. 7. General nursing care. 8. Cardiac monitoring. 9. Follow lab. 10. Follow consult recommendation. 11. Care plan reviewed and discussed with staff. JOB# [id number]
[2018-04-18] MEDS: Albuterol/Ipratropium Neb 3 ML AERS HHN SCH ×4 (00:36→19:51)
[2018-04-18 06:13] LABS: ANION GAP 8.3 (7.0-16.0); BUN - UREA NITROGEN 21 mg/dL (7-25); CARBON DIOXIDE 35.8 mEq/L (21.0-31.0); CHLORIDE 98 mEq/L (98-107); CREATININE - SERUM 0.7 mg/dL (0.6-1.2); GFR AFRICAN-AMERICAN > 60.0 ml/min (>90); GFR NON AFRICAN-AMERICAN > 60.0 ml/min; GLUCOSE 127 mg/dL (70-105); POTASSIUM SERUM 4.1 mEq/L (3.5-5.1); SODIUM SERUM 138 mEq/L (136-145)
[2018-04-18 06:21] LABS: % BASOPHILS 0.5 % (0.0-2.0); % EOSINOPHILS 10.7 % (0.0-5.0); % LYMPHOCYTES 22.5 % (20.0-50.0); % MONOCYTES 9.8 % (2.0-10.0); % NEUTROPHILS 56.5 % (40.0-80.0); EOSINOPHILE ABSOLUTE 0.5 Th/cmm (0.1-0.4); HEMATOCRIT 35.8 % (41.0-60); HEMOGLOBIN 11.7 gm/dL (12-16); MEAN CELL VOLUME 89.4 fl (81-100); MEAN CORPUSCULAR HEMOGLOBIN 29.3 pg (27.0-31.0); MEAN CORPUSCULAR HGB CONC 32.8 pg (28.0-36.0); MEAN PLATELET VOLUME 7.6 fl; MONOCYTE ABSOLUTE 0.4 Th/cmm (0.3-1.0); NEUTROPHILE ABSOLUTE 2.4 Th/cmm (1.8-8.0); PLATELET COUNT 222 Th/cmm (150-400); RED CELL DISTRIBUTION WIDTH 17.9 % (11.5-20.0); WHITE BLOOD COUNT 4.3 Th/cmm (4.8-10.8)
[2018-04-18] MEDS: Potassium Chloride 20 mEq ER Tab PO SCH ×2 (08:49→17:45)
[2018-04-18] MEDS: Pantoprazole 40 mg EC Tab PO SCH (08:49)
[2018-04-18] MEDS: Lactobacillus Rhamnosus GG 15 Billion CFU CAP.SPRINK PO SCH (08:50)
[2018-04-18] MEDS: Fluticasone Propionate 0.05mg/Actuation 16gm Nasal Spray NS SCH (08:56)
--- NOTE | 2018-04-18 18:27 | Consultation ---
DATE OF CONSULTATION: 04/16/[address] Dumont. HISTORY OF PRESENT ILLNESS: This is a 68-year-old female patient who has been complaining of shortness of breath. Following this, the patient came to the Emergency Room with elevated BNP level more than 2800. The patient was found to have congestive heart failure, systolic dysfunction, acute and the patient is admitted. Cardiology consult requested. PAST MEDICAL HISTORY: Congestive heart failure, systolic dysfunction, cardiomyopathy, hypertension, pulmonary hypertension, severe mitral regurgitation, degenerative joint disease, and glaucoma. FAMILY HISTORY: Unremarkable. SOCIAL HISTORY: No history of smoking, alcohol abuse. ALLERGIES: No known allergies. PHYSICAL EXAMINATION: VITAL SIGNS: Blood pressure 120/80, pulse 80, and respirations 28. HEAD: Normocephalic. No lumps or bumps. EYES: Pupils equal, reactive to light. Fundi show AV nicking, sclerae white, conjunctivae pink. NECK: Carotid 2+. Normal upstroke. JVD 10 cm above sternal angle. Thyroid not palpable. Lymph nodes not palpable. CHEST: Shows increased AP diameter. No kyphosis, scoliosis. LUNGS: Bilateral rales. Decreased breath sounds both the bases. HEART: PMI sixth intercostal space with lateral to midclavicular line. S1, S2, S3, S4, soft systolic murmur. ABDOMEN: Soft, hepatojugular reflux positive. Bowel sounds active. RECTAL: Deferred. EXTREMITIES: Peripheral pulses 1+, pedal edema 2+. CLINICAL IMPRESSION: Congestive heart failure, systolic dysfunction, acute pulmonary edema, acute respiratory failure, severe mitral regurgitation, pulmonary hypertension, degenerative joint disease, and stable angina. PLAN: The patient to continue on diuretics, preload and afterload reduction. JOB# [id number]
[2018-04-19] MEDS: Albuterol/Ipratropium Neb 3 ML AERS HHN SCH ×4 (01:00→19:00)
[2018-04-19 05:34] LABS: ANION GAP 9.3 (7.0-16.0); BUN - UREA NITROGEN 20 mg/dL (7-25); CALCIUM SERUM 9.3 mg/dL (8.6-10.3); CARBON DIOXIDE 38.5 mEq/L (21.0-31.0); CHLORIDE 94 mEq/L (98-107); CREATININE - SERUM 0.7 mg/dL (0.6-1.2); GFR AFRICAN-AMERICAN > 60.0 ml/min (>90); GFR NON AFRICAN-AMERICAN > 60.0 ml/min; GLUCOSE 103 mg/dL (70-105); POTASSIUM SERUM 3.8 mEq/L (3.5-5.1); SODIUM SERUM 138 mEq/L (136-145)
[2018-04-19] MEDS: Potassium Chloride 20 mEq ER Tab PO SCH ×2 (08:40→16:20)
[2018-04-19] MEDS: Lactobacillus Rhamnosus GG 15 Billion CFU CAP.SPRINK PO SCH (08:40)
[2018-04-19] MEDS: Fluticasone Propionate 0.05mg/Actuation 16gm Nasal Spray NS SCH (08:42)
[2018-04-19] MEDS: Pantoprazole 40 mg EC Tab PO SCH (08:47)
--- NOTE | 2018-04-19 09:28 | Progress Notes ---
DATE: 04/18/2018 SUBJECTIVE: The patient seen and examined. The patient denies any chest pain, increasing shortness of breath, palpitation, dizziness. Repeat lab test with downgrading BNP. PHYSICAL EXAMINATION: VITAL SIGNS: See nurses' note. HEENT: No facial asymmetry. NECK: Supple, no JVD. HEART: Regular. Positive S3 noted. Grade 3/6 systolic murmur noted. CHEST AND LUNGS: Equal in expansion with fine basilar crackles. ABDOMEN: Soft. No guarding. No rigidity. Bowel sounds are present. EXTREMITIES: No edema. CLINICAL IMPRESSION: 1. Congestive heart failure exacerbation. 2. Cardiomyopathy. 3. Systolic heart failure. 4. Mitral regurgitation and tricuspid regurgitation. 5. Pulmonary hypertension. 6. Degenerative joint disease. 7. Debility. 8. Anemia of chronic inflammation. PLAN: 1. Continue to provide oxygen. 2. Nebulizer treatment. 3. IV Lasix. 4. General nursing care. 5. Cardiac monitoring. 6. Cardiology followup. 7. Follow lab. 8. Follow chain sales consultant's recommendation. 9. Care plan reviewed and discussed with staff. JOB# [id number]
--- NOTE | 2018-04-19 20:15 | Progress Notes ---
DATE: THE PATIENT'S IDENTIFICATION: She is a 68-year-old female. The patient is seen and examined. No new complaint. OBJECTIVE: VITAL SIGNS: Temperature 97.4, pulse 70, respiratory rate 18, blood pressure 116/66. HEENT: Poor dentition. NECK: Supple, no JVD. HEART: Regular. S3 noted and basilar crackles noted. ABDOMEN: Soft. No guarding, no rigidity. Bowel sounds are present. EXTREMITIES: No edema. LABORATORY DATA: Elevated BNP of 2316 noted. Chest x-ray not available for my review. CLINICAL IMPRESSION: 1. Pulmonary edema. 2. Congestive heart failure exacerbation. 3. Hypertension. 4. Cardiomyopathy. 5. Degenerative joint disease. 6. Pulmonary hypertension. PLAN: 1. Oxygen. 2. Nebulizer treatment. 3. . 4. IV Lasix. 5. Monitor I's and O's. 6. Cardiology followup. 7. General nursing care. 8. Follow lab. 9. Follow consult recommendation. 10. Care plan reviewed. JOB# [id number]
[2018-04-20] MEDS: Albuterol/Ipratropium Neb 3 ML AERS HHN SCH ×4 (00:38→19:24)
[2018-04-20] MEDS: Fluticasone Propionate 0.05mg/Actuation 16gm Nasal Spray NS SCH (09:19)
[2018-04-20] MEDS: Lactobacillus Rhamnosus GG 15 Billion CFU CAP.SPRINK PO SCH (09:22)
[2018-04-20] MEDS: Pantoprazole 40 mg EC Tab PO SCH (09:22)
[2018-04-20] MEDS: Potassium Chloride 20 mEq ER Tab PO SCH ×2 (09:22→17:18)
[2018-04-20] MEDS ORDERED: Magnesium Hydroxide (MOM) 30 mL UDC PO PRN (16:36)
--- NOTE | 2018-04-20 17:00 | Progress Notes ---
DATE: 04/19/2018 IDENTIFICATION: A 68-year-old female. SUBJECTIVE: The patient is seen and examined. The patient is lying in the bed. No new event. OBJECTIVE: VITAL SIGNS: On admission, weight was 83.915, today is 74.243. Temperature 97.9, pulse 70, respiratory rate 18, blood pressure 138/80. HEENT: No facial asymmetry. NECK: Supple, no JVD. HEART: Regular, grade 3/6 systolic murmur noted with positive S3. CHEST AND LUNGS: Equal in expansion. Fine basilar crackles noted. ABDOMEN: Soft. No guarding, no rigidity. Bowel sounds present. No palpable mass. EXTREMITIES: No edema. AVAILABLE DIAGNOSTIC DATA: None for my review. CLINICAL IMPRESSION: 1. Congestive heart failure exacerbation. 2. Hypertension. 3. Pulmonary hypertension. 4. Severe mitral regurgitation and tricuspid regurgitation by 2D echocardiogram. 5. Degenerative joint disease. 6. Debility. PLAN: 1. Continue current medication, which prescribed Lasix. 2. Beta kvgn. 3. ARB. 4. Oxygen. 5. Nebulizer treatment. 6. Continue other medication as prescribed. 7. Protonix. 8. Potassium tablet. 9. Follow up lab. 10. Follow consults and recommendation. 11. Add Aldactone. 12. Care plan reviewed and discussed with staff. JOB# [id number]
[2018-04-21] MEDS: Albuterol/Ipratropium Neb 3 ML AERS HHN SCH ×4 (00:20→19:02)
[2018-04-21 06:14] LABS: ALB/GLOB RATIO 0.9 (1.0-1.8); ALBUMIN 3.4 gm/dL (3.7-5.3); ALKALINE PHOSPHATASE 278 U/L (34-104); ANION GAP 9.2 (7.0-16.0); BILIRUBIN,TOTAL 1.8 mg/dL (0.3-1.0); BUN - UREA NITROGEN 22 mg/dL (7-25); CALCIUM SERUM 9.6 mg/dL (8.6-10.3); CARBON DIOXIDE 37.5 mEq/L (21.0-31.0); CHLORIDE 94 mEq/L (98-107); CREATININE - SERUM 0.7 mg/dL (0.6-1.2); GFR AFRICAN-AMERICAN > 60.0 ml/min (>90); GFR NON AFRICAN-AMERICAN > 60.0 ml/min; GLUCOSE 110 mg/dL (70-105); MAGNESIUM 2.1 mg/dL (1.9-2.7); POTASSIUM SERUM 3.7 mEq/L (3.5-5.1); SGOT 40 U/L (13-39); SGPT/ALT 36 U/L (7-52); SODIUM SERUM 137 mEq/L (136-145)
[2018-04-21 06:33] LABS: % BASOPHILS 0.4 % (0.0-2.0); % EOSINOPHILS 6.9 % (0.0-5.0); % LYMPHOCYTES 25.2 % (20.0-50.0); % NEUTROPHILS 57.5 % (40.0-80.0); EOSINOPHILE ABSOLUTE 0.3 Th/cmm (0.1-0.4); HEMATOCRIT 40.1 % (41.0-60); HEMOGLOBIN 12.8 gm/dL (12-16); LYMPHOCYTE ABSOLUTE 1.2 Th/cmm (1.5-3.0); MEAN CELL VOLUME 89.4 fl (81-100); MEAN CORPUSCULAR HEMOGLOBIN 28.4 pg (27.0-31.0); MEAN CORPUSCULAR HGB CONC 31.8 pg (28.0-36.0); MEAN PLATELET VOLUME 7.8 fl; MONOCYTE ABSOLUTE 0.5 Th/cmm (0.3-1.0); NEUTROPHILE ABSOLUTE 2.7 Th/cmm (1.8-8.0); PLATELET COUNT 230 Th/cmm (150-400); RED BLOOD COUNT 4.49 Mil/cmm (3.80-5.20); RED CELL DISTRIBUTION WIDTH 18.2 % (11.5-20.0); WHITE BLOOD COUNT 4.7 Th/cmm (4.8-10.8)
[2018-04-21] MEDS: Lactobacillus Rhamnosus GG 15 Billion CFU CAP.SPRINK PO SCH (10:07)
[2018-04-21] MEDS: Potassium Chloride 20 mEq ER Tab PO SCH ×2 (10:07→16:47)
[2018-04-21] MEDS: Pantoprazole 40 mg EC Tab PO SCH (10:07)
[2018-04-21] MEDS: Fluticasone Propionate 0.05mg/Actuation 16gm Nasal Spray NS SCH (10:07)
--- NOTE | 2018-04-21 11:33 | Progress Notes ---
DATE: 04/21/2018 SUBJECTIVE: The patient is seen and examined. The patient is sitting in the chair. The patient states that she is feeling better. The patient denies any chest pain or increasing abdominal pain or nausea, vomiting. PHYSICAL EXAMINATION: VITAL SIGNS: Temperature 97.6, pulse is 74, respiratory rate 18, blood pressure 147/66. HEENT: No facial asymmetry. Poor dentition noted. NECK: Supple, no JVD. HEART: Regular. Grade 3/6 systolic murmur. CHEST AND LUNGS: Equal in expansion with fine basilar crackles, but no expiratory wheezing. ABDOMEN: Soft. No guarding, rigidity. Bowel sounds are present. Palpable mass. EXTREMITIES: No edema. AVAILABLE DIAGNOSTIC DATA: White count of 4.7, hemoglobin of 12.8, platelet count of 230, BUN and creatinine is 22 and 0.7, blood sugar 110. BNP is 1670. Medication admission record is reviewed. CLINICAL IMPRESSION: 1. Congestive heart failure exacerbation. 2. Pulmonary hypertension. 3. Cardiomyopathy. 4. Degenerative joint disease. 5. Debility. 6. Declining self-care and mobility. PLAN: 1. Oxygen. 2. Nebulizer treatment. 3. IV Lasix. 4. Follow up lab. 5. Followup consult and recommendation. 6. General nursing care. 7. Continue current treatment plan as prescribed. 8. Discharge planning based on the followup lab test with improvement. JOB# [id number]
[2018-04-21] MEDS: Metolazone 5 MG TAB PO SCH ×2 (12:43→16:48)
[2018-04-21] MEDS ORDERED: Metolazone 5 MG TAB PO SCH (17:00)
[2018-04-22] MEDS: Albuterol/Ipratropium Neb 3 ML AERS HHN SCH ×2 (00:59→07:32)
[2018-04-22 05:52] LABS: % BASOPHILS 0.6 % (0.0-2.0); % EOSINOPHILS 7.4 % (0.0-5.0); % LYMPHOCYTES 24.1 % (20.0-50.0); % MONOCYTES 8.6 % (2.0-10.0); % NEUTROPHILS 59.3 % (40.0-80.0); EOSINOPHILE ABSOLUTE 0.4 Th/cmm (0.1-0.4); HEMATOCRIT 41.2 % (41.0-60); HEMOGLOBIN 13.5 gm/dL (12-16); LYMPHOCYTE ABSOLUTE 1.3 Th/cmm (1.5-3.0); MEAN CELL VOLUME 87.9 fl (81-100); MEAN CORPUSCULAR HEMOGLOBIN 28.8 pg (27.0-31.0); MEAN CORPUSCULAR HGB CONC 32.8 pg (28.0-36.0); MEAN PLATELET VOLUME 7.5 fl; MONOCYTE ABSOLUTE 0.4 Th/cmm (0.3-1.0); NEUTROPHILE ABSOLUTE 3.1 Th/cmm (1.8-8.0); PLATELET COUNT 232 Th/cmm (150-400); RED BLOOD COUNT 4.69 Mil/cmm (3.80-5.20); RED CELL DISTRIBUTION WIDTH 17.5 % (11.5-20.0); WHITE BLOOD COUNT 5.2 Th/cmm (4.8-10.8)
[2018-04-22 06:09] LABS: ALB/GLOB RATIO 0.9 (1.0-1.8); ALBUMIN 3.5 gm/dL (3.7-5.3); ALKALINE PHOSPHATASE 307 U/L (34-104); ANION GAP 11.3 (7.0-16.0); BILIRUBIN,TOTAL 1.8 mg/dL (0.3-1.0); BUN - UREA NITROGEN 22 mg/dL (7-25); CARBON DIOXIDE 38.2 mEq/L (21.0-31.0); CHLORIDE 90 mEq/L (98-107); CREATININE - SERUM 0.7 mg/dL (0.6-1.2); GFR AFRICAN-AMERICAN > 60.0 ml/min (>90); GFR NON AFRICAN-AMERICAN > 60.0 ml/min; GLUCOSE 124 mg/dL (70-105); POTASSIUM SERUM 3.5 mEq/L (3.5-5.1); SGOT 37 U/L (13-39); SGPT/ALT 34 U/L (7-52); SODIUM SERUM 136 mEq/L (136-145); TOTAL PROTEIN,SERUM 7.4 gm/dL (6.0-8.3)
[2018-04-22] MEDS: Lactobacillus Rhamnosus GG 15 Billion CFU CAP.SPRINK PO SCH (08:39)
[2018-04-22] MEDS: Pantoprazole 40 mg EC Tab PO SCH (08:39)
[2018-04-22] MEDS: Potassium Chloride 20 mEq ER Tab PO SCH (08:40)
[2018-04-22] MEDS: Metolazone 5 MG TAB PO SCH (08:40)
[2018-04-22] MEDS: Fluticasone Propionate 0.05mg/Actuation 16gm Nasal Spray NS SCH (08:41)
--- NOTE | 2018-04-22 18:21 | Discharge Summary ---
DATE OF DISCHARGE: 04/22/2018 DATE OF ADMISSION: 04/15/2018 DATE OF DISCHARGE TO [facility]: 04/22/2018 PRINCIPAL DIAGNOSES: 1. Acute on chronic respiratory failure. 2. Congestive heart failure exacerbation. 3. Cardiomyopathy. 4. Systolic heart failure. 5. Hypertension. 6. Pulmonary hypertension by 2D echocardiogram. 7. Severe mitral and tricuspid regurgitation. 8. Degenerative joint disease. 9. Debility. 10. Decline in self-care and mobility. BRIEF STATEMENT FOR THE REASON FOR ADMISSION: A 68-year-old female resident of longterm sent to Emergency Room for increasing shortness of breath with elevated BNP of more than 2000. The patient was subsequently admitted. Please refer to my H and P for further information. HOSPITAL COURSE: The patient was admitted to telemetry unit. Cardiac enzymes were done, which were negative for acute myocardial infarction. Oxygen nebulizer treatment, IV Lasix, beta kvng, ARB were given. Cardiology consultation was requested. Appropriate home medicine was reconciled. The patient's labs were monitored. The patient was slowly improving and the patient's symptoms were resolving. The patient was seen by physical therapy and occupational therapy as well. The patient did have a daily weight with a negative fluid balance and BNP was resolved with decreasing pain. Decision was made that [facility] The patient is discharged to [facility] with the same medication as the patient is receiving. Lasix has been changed from IV to p.o. [facility]# [id number]
--- NOTE | 2018-04-22 22:56 | Progress Notes ---
DATE: PATIENT'S IDENTIFICATION: A 68-year-old female. SUBJECTIVE: The patient seen and examined. The patient feels better. The patient wants to go back to [facility]. OBJECTIVE: VITAL SIGNS: Temperature 97.5, pulse 60, respiratory rate 18, blood pressure 140/76. HEENT: No facial asymmetry. Conjunctival congestion noted. NECK: Supple, no JVD. HEART: Regular. CHEST AND LUNGS: Lung equal in expansion. Fine basal, no crackles. ABDOMEN: Soft. No guarding or rigidity. Bowel sounds are present. No palpable mass. EXTREMITIES: No edema. NEUROLOGIC: Alert, awake, follows commands. AVAILABLE DIAGNOSTIC DATA: White count of 5.2, hemoglobin 13.5, platelet count 232. BUN and creatinine is 22 and 0.7. BNP is down to 1290. CLINICAL IMPRESSION: 1. Congestive heart failure exacerbation. 2. Cardiomyopathy. 3. Hypertension. 4. Degenerative joint disease. 5. Debility. 6. Pulmonary hypertension. 7. Severe mitral tricuspid regurgitation. PLAN: Discharge back to [facility] considering the patient remained hemodynamically stable with same medication, continue other medicine as prescribed. JOB# [id number]
[2018-04-23] MEDS ORDERED: Potassium Chloride 20 mEq ER Tab PO SCH (09:00)
== END 2018-04-22 15:30 | DRG 291 ==
LOC: ER 21:05 → TELE 23:20 → MSI 04-22 14:07
PROVIDERS: ADMIT Internal Medicine; ATTEND Internal Medicine
DX: I11.0 Hypertensive heart disease with heart failure (principal); J96.20 Acute and chronic respiratory failure, unspecified whether with hypoxia or hypercapnia; R18.8 Other ascites; B19.10 Unspecified viral hepatitis B without hepatic coma; I50.21 Acute systolic (congestive) heart failure; I42.9 Cardiomyopathy, unspecified; I27.20 Pulmonary hypertension, unspecified; M19.90 Unspecified osteoarthritis, unspecified site; E86.0 Dehydration; E78.5 Hyperlipidemia, unspecified; H40.9 Unspecified glaucoma; F41.9 Anxiety disorder, unspecified; I08.3 Combined rheumatic disorders of mitral, aortic and tricuspid valves; R80.9 Proteinuria, unspecified; N83.201 Unspecified ovarian cyst, right side; D63.8 Anemia in other chronic diseases classified elsewhere; I25.119 Atherosclerotic heart disease of native coronary artery with unspecified angina pectoris
CPT/HCPCS: 36415-UA; 71045-TC; 80048-TC; 80053-TC; 80061-TC; 80074-90; 81001-TC; 83036-90; 83735-TC; 83880-TC; 84443-TC; 84484-TC; 85025-TC; 93005; 94640; 94760; 96374; 97530; 97535; J1940; X3904; Z7610